=== PATIENT | female | born 1995 | race Caucasian/White ===

== ENCOUNTER 2018-08-14 09:25 | Outpatient (REF) | payer OTHER, SELFPAY ==
--- NOTE | 2018-08-14 08:30 | PAPFT_PTH ---
PATIENT: Renny Holliday LOC: [facility] U#:[id number] AGE/SX: 23/F ROOM: RE08/14/[address]: Ramona Aguayo NP : 1995 BED: DIS: 08/14/2018 SPEC #: [id number] RECD: 08/14/18 12:56 STATUS: KEVIN TIAN #: [id number] FABRIZIO: 08/14/18 08:[address]: Ramona Aguayo NP DEPT: [facility] Cytology RECD BY: Elysia Hernandez ENTERED: 08/14/18 12:56 SP TYPE: PAPFT OTHR DR: Lesa Mckinney MD Tissues: 1 - CX/ENDOCX FOR PAP SMEARS Procedures: PAP THIN PREP/UVM Screening Comments: [id number] (CHLAMYDIA/GC)
[2018-08-15 13:46] LABS: Chlamydia Result Negative; GC Result Negative; Specimen Description SEE COMMENTS
== END 2018-08-14 09:45 ==
LOC: LBN 09:25
PROVIDERS: PCP Pediatrics; Visit Provider Nurse Practitioner Women's Health
DX: Z12.4 Encounter for screening for malignant neoplasm of cervix (principal); Z11.51 Encounter for screening for human papillomavirus (HPV)
CPT/HCPCS: 87491; 87591; 88142

== ENCOUNTER 2020-02-16 21:04 | Outpatient (REF) | payer BC, SELFPAY ==
[2020-02-18 16:39] LABS: COVID-19 RT-PCR UVMMC Result Negative (Negative)
== END 2020-02-16 21:24 ==
LOC: NCHCN 21:04
PROVIDERS: Visit Provider Nurse Practitioner Family
DX: Z20.828 Contact with and (suspected) exposure to other viral communicable diseases (principal)
CPT/HCPCS: U0003

== ENCOUNTER 2021-11-29 15:53 | Outpatient (REF) | payer OTHER, SELFPAY ==
--- NOTE | 2021-11-29 15:00 | PAPFT_PTH ---
PATIENT: Renny Holliday LOC: [facility] U#:[id number] AGE/SX: 26/F ROOM: RE11/29/[address]: Ramona Aguayo NP : 1995 BED: DIS: 11/29/2021 SPEC #: [id number] RECD: 11/29/21 17:49 STATUS: KEVIN REQ #: [id number] FABRIZIO: 11/29/21 15:[address]: Ramona Aguayo NP DEPT: [facility] Cytology RECD BY: Elysia Hernandez ENTERED: 11/29/21 17:50 SP TYPE: PAPFT OTHR DR: Tiera Merida Tissues: 1 - CX/ENDOCX FOR PAP SMEARS Procedures: PAP THIN PREP/UVM Screening Comments: [id number]
== END 2021-11-29 15:54 | disposition home or self-care (01) ==
LOC: LBN 15:53
PROVIDERS: PCP Family Medicine; Visit Provider Nurse Practitioner Women's Health
DX: Z12.4 Encounter for screening for malignant neoplasm of cervix (principal)
CPT/HCPCS: 88142

== ENCOUNTER 2022-06-08 02:20 | Outpatient (CLI) | payer OTHER, SELFPAY ==
[2022-06-08 14:13] LABS: Panorama Kit Sent via Fed Ex
[2022-06-08 14:23] LABS: Abs Immature Grans 0.03 10^3/uL (0.0-0.06); Absolute Basophil Count 0.02 10^3/uL (0.0-0.2); Absolute Eosinophil Count 0.12 10^3/uL (0.0-0.7); Absolute Lymphocyte Count 1.43 10^3/uL (1.2-3.4); Absolute Monocyte Count 0.44 10^3/uL (0.1-0.8); Absolute Neutrophil Count 5.91 10^3/uL (1.2-6.7); Basophils % 0.3; Eosinophils % 1.5; HCT 35.8 % (36.0-46.0); HGB 12.7 g/dL (11.2-15.7); Immature Grans % 0.4; MCH 32.1 pg (27.0-33.0); MCHC 35.5 % (32.0-36.0); MCV 90 fL (80-95); MPV 9.9 fL (8.0-11.0); Monocytes % 5.5; Neutrophils % 74.3; Platelet Count 207 10^3/uL (130-400); RBC 3.96 10^6/uL (3.93-5.22); RDW 11.5 % (11.7-14.6); RDW-SD 38.2 fL; WBC 7.95 10^3/uL (4.4-10.8)
[2022-06-08 15:37] LABS: TSH (W/Ref FT4) 2.52 uIU/mL (0.36-3.74)
[2022-06-08 16:54] LABS: Lab Add On Test DONE
[2022-06-09 12:49] LABS: HIV-1/2 Ag & Ab Screen Negative (Negative)
[2022-06-11 10:26] LABS: Hepatitis B Surface Ag Negative (Negative)
[2022-06-11 10:56] LABS: Hepatitis C Ab w Rflx HCV PCR Negative (Negative)
[2022-06-11 11:13] LABS: Varicella IgG Antibody Positive (See Note)
[2022-06-11 11:22] LABS: Rubella IgG Ab (UVM) Positive (See Note)
[2022-06-11 14:05] LABS: Thyroperoxidase Antibody <28 U/mL (<=60)
[2022-06-11 23:56] LABS: Syphilis IgG w/Reflex Nonreactive (Nonreactive)
[2022-06-13 12:26] LABS: Specimen WB Whole Blood
[2022-06-19 14:57] LABS: Result Summary NEGATIVE; Specimen WB Whole Blood
== END 2022-06-08 02:21 | disposition home or self-care (01) ==
LOC: LBO 02:21
PROVIDERS: PCP Family Medicine; Visit Provider Advanced Practice Midwife
DX: Z34.01 Encounter for supervision of normal first pregnancy, first trimester (principal)
CPT/HCPCS: 36415; 81220; 81222; 81329; 86787; 86803; 86850; 86900; 86901; 87340; 87389; 84443; 85025; 86376; 86762; 86780

== ENCOUNTER 2022-06-08 12:57 | Outpatient (REF) | payer OTHER, SELFPAY ==
[2022-06-08 16:55] LABS: *AMPHETAMINES SCREEN URINE Negative (Negative); *BARBITURATES SCREEN URINE Negative (Negative); *BENZODIAZEPINES SCREEN URINE Negative (Negative); Cannabinoids THC Negative (Negative); Cocaine Screen,Urine Negative (Negative); METHADONE URINE SCREEN Negative (Negative); OPIATES URINE SCREEN Negative (Negative)
[2022-06-08 16:57] LABS: Tricyclic Antidepressants Negative (Negative)
[2022-06-14 21:49] LABS: Buprenorphine Negative ng/mL (Cutoff: 5.0); Norbuprenorphine Negative ng/mL (Cutoff: 2.5)
[2022-06-15 09:21] LABS: Chlamydia Result Negative (Negative); GC Result Negative (Negative)
== END 2022-06-08 12:58 | disposition home or self-care (01) ==
LOC: LBN 12:57
PROVIDERS: PCP Family Medicine; Visit Provider Advanced Practice Midwife
DX: Z34.90 Encounter for supervision of normal pregnancy, unspecified, unspecified trimester (principal)
CPT/HCPCS: 80307; 80348; 87491; 87591; 87086

== ENCOUNTER 2022-07-09 03:08 | Outpatient (CLI) | payer OTHER, SELFPAY ==
[2022-07-09 21:37] LABS: Thyroperoxidase Antibody <28 U/mL (<=60)
== END 2022-07-09 03:09 | disposition home or self-care (01) ==
LOC: LBO 03:08
PROVIDERS: Advanced Practice Midwife; PCP Family Medicine; Visit Provider Advanced Practice Midwife
DX: O99.282 Endocrine, nutritional and metabolic diseases complicating pregnancy, second trimester (principal); E04.9 Nontoxic goiter, unspecified; R79.89 Other specified abnormal findings of blood chemistry; Z3A.15 15 weeks gestation of pregnancy
CPT/HCPCS: 36415; 86376

== ENCOUNTER 2022-08-10 01:11 | Outpatient (CLI) | payer OTHER, SELFPAY ==
[2022-08-10 11:37] LABS: TSH (W/Ref FT4) 2.49 uIU/mL (0.36-3.74)
[2022-08-14 11:42] LABS: AFP 114.3 ng/mL; Cigarette smoking status non-Smoker; GA used in risk estimate Scan estimate; IVF Pregnancy No; Initial or repeat testing Initial testing; Insulin dependent diabetes No; Maternal Weight 122 lbs; Number of Fetuses 1; Physician Phone Number 802-748-7300; Prev Pregnancy w/NTD No; RECOMMENDED FOLLOW UP None.; Results Summary Normal risk
== END 2022-08-10 01:12 | disposition home or self-care (01) ==
LOC: LBO 01:11
PROVIDERS: Advanced Practice Midwife; PCP Family Medicine; Visit Provider Advanced Practice Midwife
DX: O99.282 Endocrine, nutritional and metabolic diseases complicating pregnancy, second trimester (principal); E04.9 Nontoxic goiter, unspecified; Z3A.19 19 weeks gestation of pregnancy
CPT/HCPCS: 36415; 82105; 84443

== ENCOUNTER 2022-10-04 03:56 | Outpatient (CLI) | payer OTHER, SELFPAY ==
[2022-10-04 09:46] LABS: HCT 36.1 % (36.0-46.0); HGB 12.6 g/dL (11.2-15.7); MCH 33.2 pg (27.0-33.0); MCHC 34.9 % (32.0-36.0); MCV 95 fL (80-95); MPV 9.9 fL (8.0-11.0); Platelet Count 182 10^3/uL (130-400); RDW 12.1 % (11.7-14.6); RDW-SD 42.2 fL; WBC 8.89 10^3/uL (4.4-10.8)
[2022-10-04 10:07] LABS: Glucose,1 Hr (Glucola) 112 mg/dL (80-140)
[2022-10-04 10:20] LABS: TSH (W/Ref FT4) 2.26 uIU/mL (0.36-3.74)
== END 2022-10-04 03:57 | disposition home or self-care (01) ==
LOC: LBO 03:56
PROVIDERS: Advanced Practice Midwife; PCP Family Medicine; Visit Provider Advanced Practice Midwife
DX: R79.89 Other specified abnormal findings of blood chemistry; Z83.49 Family history of other endocrine, nutritional and metabolic diseases; Z34.93 Encounter for supervision of normal pregnancy, unspecified, third trimester
CPT/HCPCS: 36415; 82950; 85027; 84443

== ENCOUNTER 2022-10-26 15:43 | Outpatient (REF) | payer OTHER, SELFPAY | END 2022-10-26 15:44 | disposition home or self-care (01) | LOC: LBN 15:43 | PROVIDERS: PCP Family Medicine; Visit Provider Advanced Practice Midwife | DX: Z34.93 Encounter for supervision of normal pregnancy, unspecified, third trimester (principal); N94.9 Unspecified condition associated with female genital organs and menstrual cycle; R82.79 Other abnormal findings on microbiological examination of urine | CPT/HCPCS: 87086; 87480; 87510; 87660 ==

== ENCOUNTER 2022-12-06 16:49 | Outpatient (REF) | payer OTHER, SELFPAY ==
[2022-12-06 18:33] LABS: *AMPHETAMINES SCREEN URINE Negative (Negative); *BARBITURATES SCREEN URINE Negative (Negative); *BENZODIAZEPINES SCREEN URINE Negative (Negative); Cannabinoids THC Negative (Negative); Cocaine Screen,Urine Negative (Negative); METHADONE URINE SCREEN Negative (Negative); OPIATES URINE SCREEN Negative (Negative)
[2022-12-06 18:35] LABS: Tricyclic Antidepressants Negative (Negative)
[2022-12-14 12:29] LABS: Buprenorphine Negative ng/mL (Cutoff: 5.0)
== END 2022-12-06 16:50 | disposition home or self-care (01) ==
LOC: LBN 16:49
PROVIDERS: PCP Family Medicine; Visit Provider Advanced Practice Midwife
DX: Z34.93 Encounter for supervision of normal pregnancy, unspecified, third trimester (principal)
CPT/HCPCS: 80307; 80348; 87081

== ENCOUNTER 2022-12-27 16:06 | Outpatient (CLI) | payer OTHER, SELFPAY ==
[2022-12-27 16:22] VITALS: BP 131/88; PULSE 82; TEMP 36.8
[2022-12-27 16:28] VITALS: BP 131/88; PULSE 82
[2022-12-27 16:42] VITALS: BP 126/85; PULSE 79
--- NOTE | 2022-12-27 16:51 | W.OBNST ---
Date of service: 12/27/22 Time of Service: 16:51 NST Evaluation Reason for NST Reasons for Nonstress Test: GESTATIONAL HYPERTENSION Gestational Age Gestational Age in Weeks and Days: 40 Weeks and 3Days Test and Monitor Explained Test/Monitor Explained: Test Explained, Monitor Explained and Patient Verbalized Understanding Vital Signs Blood Pressure: 131/88 Pulse: 82 Temperature: 98.2 F NST Information Date on Monitor: 12/27/22 Time on Monitor: 16:17 NST Interventions: None NST Evaluation Patient States Movement: Present FHR Baseline: 140 Variability: Moderate 6-25 bpm Accelerations: 15x15 Decelerations: None NST Results: Reactive Note Ultrasound Done: N/A. NST Note Note: Elevated BP at her visit today. Neg urine protein dip. BP recheck 126/85. Renny has stopped working and was encouraged to practice modified bedrest and RTO in 4 days for BP recheck. Sign sof preeclampsia reviewed with Renny and her partner. Diagnosis of gestational hypertension discussed and the option of IOL at this time or continued observation discussed. She was instructed to continue taking her BP at home and report BP 140/90. preeclampsia serum labs drawn. Await results. NST Reviewed and Verified by: Tea Ang
[2022-12-27 16:53] LABS: HCT 32.9 % (36.0-46.0); HGB 11.5 g/dL (11.2-15.7); MCH 32.3 pg (27.0-33.0); MCV 92 fL (80-95); MPV 10.8 fL (8.0-11.0); Platelet Count 142 10^3/uL (130-400); RBC 3.56 10^6/uL (3.93-5.22); RDW 12.3 % (11.7-14.6); RDW-SD 41.6 fL; WBC 9.62 10^3/uL (4.4-10.8)
[2022-12-27 16:54] VITALS: BP 131/88; PULSE 82; TEMP 36.8
[2022-12-27 17:09] LABS: ALT 21 U/L (14-59); AST 29 U/L (15-37); Albumin 2.7 g/dL (3.4-5.0); Alkaline Phosphatase 137 U/L (46-116); Anion Gap 6.7 mmol/L (3-11); BUN 14 mg/dL (7-18); Bilirubin, Total 0.2 mg/dL (0.2-1.0); CO2 24.3 mmol/L (21.0-32.0); CREATININE 0.8 mg/dL (0.55-1.02); Calcium 9.4 mg/dL (8.5-10.1); Chloride 105 mmol/L (98-107); Glucose 80 mg/dL (74-106); Potassium 3.7 mmol/L (3.5-5.1); Sodium 136 mmol/L (136-145); Total Protein 6.4 g/dL (6.4-8.2); Uric Acid 5.6 mg/dL (2.6-6.0)
== END 2022-12-27 17:10 ==
LOC: BCD 16:06 → OBS 16:20
PROVIDERS: PCP Family Medicine; Visit Provider Advanced Practice Midwife
DX: O13.3 Gestational [pregnancy-induced] hypertension without significant proteinuria, third trimester (principal); Z3A.40 40 weeks gestation of pregnancy
CPT/HCPCS: 80053; 85027; 59025; 84550

== ENCOUNTER 2023-01-01 17:28 | Inpatient (IN) | payer OTHER, SELFPAY ==
[2023-01-01] VITALS (12 sets, daily range): BP systolic 136–160; BP diastolic 92–105; PULSE 68–97; RESP 18; TEMP 36.8
[2023-01-01 16:41] LABS: HCT 35.9 % (36.0-46.0); HGB 12.3 g/dL (11.2-15.7); MCH 32.1 pg (27.0-33.0); MCHC 34.3 % (32.0-36.0); MCV 94 fL (80-95); MPV 10.9 fL (8.0-11.0); Platelet Count 146 10^3/uL (130-400); RBC 3.83 10^6/uL (3.93-5.22); RDW 12.4 % (11.7-14.6); RDW-SD 42.5 fL; WBC 9.09 10^3/uL (4.4-10.8)
[2023-01-01 17:11] LABS: ALT 29 U/L (14-59); AST 35 U/L (15-37); Albumin 2.8 g/dL (3.4-5.0); Alkaline Phosphatase 143 U/L (46-116); Anion Gap 9.4 mmol/L (3-11); BUN 12 mg/dL (7-18); Bilirubin, Total 0.3 mg/dL (0.2-1.0); CO2 25.6 mmol/L (21.0-32.0); CREATININE 0.8 mg/dL (0.55-1.02); Calcium 9.3 mg/dL (8.5-10.1); Chloride 102 mmol/L (98-107); Glucose 76 mg/dL (74-106); Potassium 4.1 mmol/L (3.5-5.1); Sodium 137 mmol/L (136-145); Total Protein 6.8 g/dL (6.4-8.2); Uric Acid 5.8 mg/dL (2.6-6.0)
--- NOTE | 2023-01-01 17:34 | W.OBNST ---
Date of service: 01/01/23 Time of Service: 17:34 NST Evaluation Reason for NST Reasons for Nonstress Test: GESTATIONAL HYPERTENSION Gestational Age Gestational Age in Weeks and Days: 40 Weeks and 1Days Test and Monitor Explained Test/Monitor Explained: Test Explained, Monitor Explained and Patient Verbalized Understanding Vital Signs Pulse: 75 Temperature: 98.2 F Urine Results Urine Protein: Negative Urine Ketones: Negative Urine Glucose: Negative Urine Blood: Negative NST Information Date on Monitor: 01/01/23 Time on Monitor: 16:00 Date off Monitor: 01/01/23 Time off Monitor: 16:41 Total Time on Monitor: 41 NST Interventions: None Contraction Frequency: 5-6 minutes apart NST Evaluation Patient States Movement: Present FHR Baseline: 130 Variability: Moderate 6-25 bpm Accelerations: 15x15 Decelerations: None NST Results: Reactive Note Ultrasound Done: DALILA Coding for DALILA w/NST: Completed Exam. NST Note Note: NST reactive. DALILA performed by Dr Macias and DALILA 14. preeclampsia labs were drawn and WNL. BP continued to rise to 160/105. SVE and cervix 2/post/80/0 station. I discussed admission for continued BP monitoring and consider induction of labor. Renny prefers cervical ripening without medications and stripping of membranes was performed which she tolerated well. Admitted to center NST Reviewed and Verified by: Tea Ang
[2023-01-01 17:38] LABS: COMMENT (LAB VIEW ONLY) 32.93 mg/dL; PROTEIN < 6.0 mg/dL
--- NOTE | 2023-01-01 17:38 | W.PM.OBHPL1 ---
Date of service: 01/01/23 Time of Service: 17:38 Assessment and Plan Assessment and plan (1) Gestational hypertension: Status: Acute Assessment and plan: Admit to Center for continued observation. Comfort measures. Hourly BP and every 4 hour NST. Covid- 19 test. Consider cervical ripening if indicated by Renny's condition. Plan reviewed with Dr. Macias who agrees. Will plan to repeat preeclampsia panel and draw type and screen in the morning. OB-HPI Labor/Delivery History of Present Illness Reason for Visit: COVID.Other Chief Complaint: Signs/Symptoms Gestational HTN , Associated Signs and Symptoms of GestationalHTN: hypertension. MIRTA Calculator Estimated Delivery Date Method Current WG Current Estimate 12/31/22 Ultrasound #1 40w 1d Other Estimates 12/20/22 LMP (Certain) 41w 5d Comments: Renny came to the center for NST after elevated BP at her visit. Preeclampsia labs performed 6 days ago and were WNL with BP 130-140/80-90. BP range today is 141-160/92-105. DALILA performed by Dr Macias during NST which was 14. neg edema. History of Present Expected Delivery Route/Plan - CNM FOB/ - Ramiro Holliday (first baby) BG GBS negative Prefers no epidural Specific Issues/Plan 1. Enlarged thyroid, TSH 2.52, TPO <28 1a. repeat TSH second trimester- 2.49, third trimester - 2.26 2. Panorama-neg, CF & SMA negative, AFP nl risk 3. Fam hx Bicuspid aortic valve - pt's father. Neurofibromatosis - Ramiro's Pat GM, paternal uncles & ?nephew. 3a. Offered Level 2 US at [facility] [place] and referral sent, pt declines 4. Right flank pain at 30 weeks- urine culture neg, symptoms resolved with rest and fluids PFSH All Active Problems (Updated 12/27/22 @ 16:34 by Tea Ang CNM) Gestational hypertension (Acute) Elevated TSH (Acute) Family history of thyroid disease (Acute) Enlarged thyroid (Acute) (Acute) Family history of congenital heart defect (Acute) Renny's father - bicuspid aortic valve Positive test (Acute) Medical History (Updated 12/27/22 @ 16:34 by Tea Ang CNM) Closed fracture of humerus L Family History (Updated 07/09/22 @ 13:45 by Tea Ang CNM) Father Essential hypertension Grandmother Personal history of malignant neoplasm Heart disease Maternal Grandmother Breast cancer age 60 Paternal Grandfather Heart disease Maternal Grandfather Parathyroid abnormality parathyroid nodules removed Mother Parathyroid abnormality Social History Smoking/Tobacco Use Status: Never Smoking risk assessment performed?: Yes Female Reproductive History Menstrual Age of Menarche: 17 control method: none History History 1 Para 0 Hx # Term Pregnancies 0 Multiple births 0 Hx # Pregnancies 0 Ectopic pregnancies 0 AB induced 0 Hx Number of Living Children 0 AB spontaneous 0 Meds Allergies and Home Medications Allergies Allergy/AdvReac Type Severity Reaction Status Date / Time No Known Allergies Allergy Verified 01/01/23 15:48 Home Medications Medication Instructions Recorded Confirmed Type prenat.vits,teena,ehe-hxuz-glfzq 1 tab PO DAILY 11/29/21 01/01/23 History Exam Physical Exam Vital signs: Pulse BP 75 160/105 H 01/01/23 17:05 01/01/23 17:05 Constitutional Constitutional: no acute distress Detailed Labor and Delivery Exam Dilation: 2 Effacement (%): 80 station: 0 Cervix position: posterior Consistency: soft Johnson Score: Cervical Points Exam 0 1 2 3 Dilation Closed 1-2cm 3-4 cm 5-6cm Effacement 0-30% 40-50% 60-70% 80% Consistency Firm Medium Soft Station -3 -2 -1,0 +1,+2 Position Posterior Mid Anterior JOHNSON Score(Cervical Ripeness Score): 8 Amniotic Membrane Status: Intact Monitor Mode: External Contraction Frequency(min): occasional Contraction Duration(sec): irreg Contraction Intensity: Mild Fetus A Heart Rate Baseline: 130 Monitor Accelerations: 15 X 15 Monitor Decelerations: None Variability: Moderate (6-25 BPM) Presentation: Vertex Categories: Category I Neck Exam Neck Exam: Normal Respiratory Exam Respiratory Exam: Normal Cardiovascular Exam Cardiovascular Exam: Normal Abdominal Exam Abdominal Exam: Normal Exam Exam: Normal Extremities Exam Extremities Exam: Normal Skin Exam Skin Exam: Normal Psychiatric Exam Psychiatric Exam: Normal Results Abnormal Lab Findings: Abnormal Labs 01/01/23 16:31 RBC 3.83 L Hct 35.9 L Alkaline Phosphatase 143 H Albumin 2.8 L Risk Assessment Risk for Shoulder Dystocia Historical/Initial OB: NEGATIVE FOR: Pelvic Abnormality, Pre- BMI>30, Previous Shoulder Dystocia or Previous Macrosomia Delivery Plan @ 40 wks: Risk for Pre-Eclampsia Yes, if one or more: NEGATIVE FOR: Hx Pre-E/Gest HTN, Chronic HTN, Multiple Gestation, Pre-gestational DM, Renal Disease, Systemic Lupus or APA Syndrome Yes, if 2 or more: POSITIVE FOR: Nulliparity; NEGATIVE FOR: Age>= 35 yrs, >10yr btwn pregnancies, BMI>30, ethinicty, Mother/Sister w/ Pre-E or Previous IUGR Risk for Post- Hemorrhage Initial: NEGATIVE FOR: Multiple Gestation, Previous PPH, Known Clotting Deficiency, Grand Multiparity or Anticoagulation 40 Weeks: POSITIVE FOR: Gestation HTN or Pre-E At Risk?: Yes Risks Reviewed Risks Reviewed Upon Admission: Yes
[2023-01-01 18:00] LABS: Source Nasal/Nares
[2023-01-01 18:43] LABS: COVID-19 PCR Negative (Negative)
[2023-01-02] VITALS (19 sets, daily range): BP systolic 114–148; BP diastolic 76–92; PULSE 70–140; RESP 16–18; TEMP 36.4–36.8; O2SAT 97
[2023-01-02 07:26] LABS: HGB 13.3 g/dL (11.2-15.7); MCH 32.8 pg (27.0-33.0); MCV 94 fL (80-95); MPV 10.9 fL (8.0-11.0); Platelet Count 144 10^3/uL (130-400); RBC 4.05 10^6/uL (3.93-5.22); RDW 12.3 % (11.7-14.6)
[2023-01-02 07:45] LABS: ALT 61 U/L (14-59); AST 73 U/L (15-37); Alkaline Phosphatase 147 U/L (46-116); Anion Gap 10.7 mmol/L (3-11); BUN 12 mg/dL (7-18); Bilirubin, Total 0.5 mg/dL (0.2-1.0); CO2 24.3 mmol/L (21.0-32.0); CREATININE 0.9 mg/dL (0.55-1.02); Chloride 101 mmol/L (98-107); Estimated GFR 90.98 (mL/min/1.73m2); Glucose 86 mg/dL (74-106); Potassium 3.7 mmol/L (3.5-5.1); Sodium 136 mmol/L (136-145); Uric Acid 5.7 mg/dL (2.6-6.0)
--- NOTE | 2023-01-02 07:53 | PGE_ITS ---
Date of service: 01/02/23 Time of Service: 06:15 Pelvic Exam Comments: exam deferred Contractions Monitor Mode: External Contraction Frequency(min): every 2-4 Contraction Duration(sec): 50-60 Intensity: Mild/Moderate Fetus A Monitor: External (US) Heart Rate Baseline: 130 Presentation: Vertex Variability: Moderate (6-25 BPM) Categories: Category I Accelerations: 15 X 15 Decelerations: None Objective Abnormal lab results 01/01/23 01/02/23 Range/Units 16:31 06:55 WBC 11.30 H (4.4-10.8) 10^3/uL RBC 3.83 L (3.93-5.22) 10^6/uL Hct 35.9 L (36.0-46.0) % AST 73 H (15-37) U/L ALT 61 H (14-59) U/L Alkaline Phosphatase 143 H 147 H (46-116) U/L Albumin 2.8 L 3.0 L (3.4-5.0) g/dL Temp Pulse Resp BP 97.9 F 90 18 123/77 01/02/23 07:28 01/02/23 07:28 01/02/23 07:28 01/02/23 07:28 Laboratory Results WBC 11.30 10^3/uL (4.4-10.8) H 01/02/23 06:55 RBC 4.05 10^6/uL (3.93-5.22) 01/02/23 06:55 Hgb 13.3 g/dL (11.2-15.7) 01/02/23 06:55 Hct 38.0 % (36.0-46.0) 01/02/23 06:55 MCV 94 fL (80-95) 01/02/23 06:55 MCH 32.8 pg (27.0-33.0) 01/02/23 06:55 MCHC 35.0 % (32.0-36.0) 01/02/23 06:55 RDW 12.3 % (11.7-14.6) 01/02/23 06:55 Plt Count 144 10^3/uL (130-400) 01/02/23 06:55 MPV 10.9 fL (8.0-11.0) 01/02/23 06:55 Sodium 136 mmol/L (136-145) 01/02/23 06:55 Sodium Cancelled 01/02/23 06:55 Potassium 3.7 mmol/L (3.5-5.1) 01/02/23 06:55 Potassium Cancelled 01/02/23 06:55 Chloride 101 mmol/L (98-107) 01/02/23 06:55 Chloride Cancelled 01/02/23 06:55 Carbon Dioxide 24.3 mmol/L (21.0-32.0) 01/02/23 06:55 Carbon Dioxide Cancelled 01/02/23 06:55 Anion Gap 10.7 mmol/L (3-11) 01/02/23 06:55 Anion Gap Cancelled 01/02/23 06:55 BUN 12 mg/dL (7-18) 01/02/23 06:55 BUN Cancelled 01/02/23 06:55 Creatinine 0.9 mg/dL (0.55-1.02) 01/02/23 06:55 Creatinine Cancelled 01/02/23 06:55 Est GFR (CKD-EPI 2020) 90.98 (mL/min/1.73m2) 01/02/23 06:55 Est GFR (CKD-EPI 2020) Cancelled 01/02/23 06:55 Glucose 86 mg/dL (74-106) 01/02/23 06:55 Glucose Cancelled 01/02/23 06:55 Uric Acid 5.7 mg/dL (2.6-6.0) 01/02/23 06:55 Calcium 9.0 mg/dL (8.5-10.1) 01/02/23 06:55 Calcium Cancelled 01/02/23 06:55 Total Bilirubin 0.5 mg/dL (0.2-1.0) 01/02/23 06:55 Total Bilirubin Cancelled 01/02/23 06:55 AST 73 U/L (15-37) H 01/02/23 06:55 AST Cancelled 01/02/23 06:55 ALT 61 U/L (14-59) H 01/02/23 06:55 ALT Cancelled 01/02/23 06:55 Alkaline Phosphatase 147 U/L (46-116) H 01/02/23 06:55 Alkaline Phosphatase Cancelled 01/02/23 06:55 Total Protein 7.0 g/dL (6.4-8.2) 01/02/23 06:55 Total Protein Cancelled 01/02/23 06:55 Albumin 3.0 g/dL (3.4-5.0) L 01/02/23 06:55 Albumin Cancelled 01/02/23 06:55 Ur Random Creatinine 32.93 mg/dL 01/01/23 16:43 U Random Total Protein < 6.0 mg/dL 01/01/23 16:43 U [place] Prot/Creat Ratio 01/01/23 16:43 COVID-19 Source Nasal/Nares 01/01/23 17:40 SARS-CoV-2 (PCR) Negative (Negative) 01/01/23 17:40 Subjective Interval history since last seen: Renny rested and slept until 0300. She awoke with regular contractions and began using the ball for comfort. Pain relief options reviewed by RN and Renny is coping well with contractions, BP range is 123-151/77-93. Results Hemoglobin/Hematocrit: Hgb 13.3 g/dL (11.2-15.7) 01/02/23 06:55 Hct 38.0 % (36.0-46.0) 01/02/23 06:55 Abnormal Lab Findings: Abnormal Labs 01/01/23 01/02/23 16:31 06:55 WBC 11.30 H RBC 3.83 L Hct 35.9 L AST 73 H ALT 61 H Alkaline Phosphatase 143 H 147 H Albumin 2.8 L 3.0 L
--- NOTE | 2023-01-02 10:10 | PGE_ITS ---
Date of service: 01/02/23 Time of Service: 09:50 Pelvic Exam Dilation: 8 Effacement (%): 100 station: 0 Contractions Monitor Mode: Palpation Contraction Frequency(min): q4-5 Contraction Duration(sec): 60-70 Intensity: Moderate/Strong Fetus A Monitor: Doppler Heart Rate Baseline: 140 Presentation: Cephalic FHR Rhythm: Regular Characteristics: Normal Accelerations: Present Amniotic Membrane Status: Ruptured Rupture Method: Artifical Amniotic Fluid: Clear Amount: small Date of Membrane Rupture: 01/02/23 Time of Membrane Rupture: 09:46 Assessment and Plan Assessment and plan (1) Uterine contractions: Status: Acute Assessment and plan: A: Hand off from Gentry Ang CNM 27 yo G1 @ 40+2 wks spontaneous onset of active labor category 1 tracing GBS negative, low risk for SD, increased risk for PPH P: Anticipate Active management of third stage Dr. Macias consulting, is aware of pt status (2) Gestational hypertension: Status: Acute Assessment and plan: gHTN diagnosed yesterday Labs repeated this morning and remain WNL BP has stabilized to 120-130 over 70's Qualifiers: Trimester: third trimester Qualified Code(s): O13.3 - Gestational [-induced] hypertension without significant proteinuria, third trimester Objective Abnormal lab results 01/01/23 01/02/23 Range/Units 16:31 06:55 WBC 11.30 H (4.4-10.8) 10^3/uL RBC 3.83 L (3.93-5.22) 10^6/uL Hct 35.9 L (36.0-46.0) % AST 73 H (15-37) U/L ALT 61 H (14-59) U/L Alkaline Phosphatase 143 H 147 H (46-116) U/L Albumin 2.8 L 3.0 L (3.4-5.0) g/dL Temp Pulse Resp BP 97.5 F L 83 18 124/77 01/02/23 10:06 01/02/23 09:03 01/02/23 09:03 01/02/23 09:03 Laboratory Results WBC 11.30 10^3/uL (4.4-10.8) H 01/02/23 06:55 RBC 4.05 10^6/uL (3.93-5.22) 01/02/23 06:55 Hgb 13.3 g/dL (11.2-15.7) 01/02/23 06:55 Hct 38.0 % (36.0-46.0) 01/02/23 06:55 MCV 94 fL (80-95) 01/02/23 06:55 MCH 32.8 pg (27.0-33.0) 01/02/23 06:55 MCHC 35.0 % (32.0-36.0) 01/02/23 06:55 RDW 12.3 % (11.7-14.6) 01/02/23 06:55 Plt Count 144 10^3/uL (130-400) 01/02/23 06:55 MPV 10.9 fL (8.0-11.0) 01/02/23 06:55 Sodium 136 mmol/L (136-145) 01/02/23 06:55 Sodium Cancelled 01/02/23 06:55 Potassium 3.7 mmol/L (3.5-5.1) 01/02/23 06:55 Potassium Cancelled 01/02/23 06:55 Chloride 101 mmol/L (98-107) 01/02/23 06:55 Chloride Cancelled 01/02/23 06:55 Carbon Dioxide 24.3 mmol/L (21.0-32.0) 01/02/23 06:55 Carbon Dioxide Cancelled 01/02/23 06:55 Anion Gap 10.7 mmol/L (3-11) 01/02/23 06:55 Anion Gap Cancelled 01/02/23 06:55 BUN 12 mg/dL (7-18) 01/02/23 06:55 BUN Cancelled 01/02/23 06:55 Creatinine 0.9 mg/dL (0.55-1.02) 01/02/23 06:55 Creatinine Cancelled 01/02/23 06:55 Est GFR (CKD-EPI 2020) 90.98 (mL/min/1.73m2) 01/02/23 06:55 Est GFR (CKD-EPI 2020) Cancelled 01/02/23 06:55 Glucose 86 mg/dL (74-106) 01/02/23 06:55 Glucose Cancelled 01/02/23 06:55 Uric Acid 5.7 mg/dL (2.6-6.0) 01/02/23 06:55 Calcium 9.0 mg/dL (8.5-10.1) 01/02/23 06:55 Calcium Cancelled 01/02/23 06:55 Total Bilirubin 0.5 mg/dL (0.2-1.0) 01/02/23 06:55 Total Bilirubin Cancelled 01/02/23 06:55 AST 73 U/L (15-37) H 01/02/23 06:55 AST Cancelled 01/02/23 06:55 ALT 61 U/L (14-59) H 01/02/23 06:55 ALT Cancelled 01/02/23 06:55 Alkaline Phosphatase 147 U/L (46-116) H 01/02/23 06:55 Alkaline Phosphatase Cancelled 01/02/23 06:55 Total Protein 7.0 g/dL (6.4-8.2) 01/02/23 06:55 Total Protein Cancelled 01/02/23 06:55 Albumin 3.0 g/dL (3.4-5.0) L 01/02/23 06:55 Albumin Cancelled 01/02/23 06:55 Ur Random Creatinine 32.93 mg/dL 01/01/23 16:43 U Random Total Protein < 6.0 mg/dL 01/01/23 16:43 U [place] Prot/Creat Ratio 01/01/23 16:43 COVID-19 Source Nasal/Nares 01/01/23 17:40 SARS-CoV-2 (PCR) Negative (Negative) 01/01/23 17:40 Patient ABO/Rh O Positive 01/02/23 06:55 Antibody Screen NEGATIVE 01/02/23 06:55 Vital Signs Reviewed: Yes Objective Narrative Objective Narrative: BP stable and WNL this morning Pt coping extremely well with contractions Using floor mat, CUB, and nitrous to good effect
--- NOTE | 2023-01-02 10:18 | W.PM.OBNL1 ---
Date of service: 01/02/23 Time of Service: 10: Assessment and Plan Assessment and plan (1) Elevated liver enzymes: Status: Acute Assessment and plan: Addendum to previous labor progress note: HTN labs drawn this morning reveal nml plts and CBC, CMP stable except for increased AST/ALT = 73/61, creatinine 0.9 Urine prot/creat pending Will review with Objective Abnormal lab results 01/01/23 01/02/23 Range/Units 16:31 06:55 WBC 11.30 H (4.4-10.8) 10^3/uL RBC 3.83 L (3.93-5.22) 10^6/uL Hct 35.9 L (36.0-46.0) % AST 73 H (15-37) U/L ALT 61 H (14-59) U/L Alkaline Phosphatase 143 H 147 H (46-116) U/L Albumin 2.8 L 3.0 L (3.4-5.0) g/dL Temp Pulse Resp BP 97.5 F L 83 18 124/77 01/02/23 10:06 01/02/23 09:03 01/02/23 09:03 01/02/23 09:03 Laboratory Results WBC 11.30 10^3/uL (4.4-10.8) H 01/02/23 06:55 RBC 4.05 10^6/uL (3.93-5.22) 01/02/23 06:55 Hgb 13.3 g/dL (11.2-15.7) 01/02/23 06:55 Hct 38.0 % (36.0-46.0) 01/02/23 06:55 MCV 94 fL (80-95) 01/02/23 06:55 MCH 32.8 pg (27.0-33.0) 01/02/23 06:55 MCHC 35.0 % (32.0-36.0) 01/02/23 06:55 RDW 12.3 % (11.7-14.6) 01/02/23 06:55 Plt Count 144 10^3/uL (130-400) 01/02/23 06:55 MPV 10.9 fL (8.0-11.0) 01/02/23 06:55 Sodium 136 mmol/L (136-145) 01/02/23 06:55 Sodium Cancelled 01/02/23 06:55 Potassium 3.7 mmol/L (3.5-5.1) 01/02/23 06:55 Potassium Cancelled 01/02/23 06:55 Chloride 101 mmol/L (98-107) 01/02/23 06:55 Chloride Cancelled 01/02/23 06:55 Carbon Dioxide 24.3 mmol/L (21.0-32.0) 01/02/23 06:55 Carbon Dioxide Cancelled 01/02/23 06:55 Anion Gap 10.7 mmol/L (3-11) 01/02/23 06:55 Anion Gap Cancelled 01/02/23 06:55 BUN 12 mg/dL (7-18) 01/02/23 06:55 BUN Cancelled 01/02/23 06:55 Creatinine 0.9 mg/dL (0.55-1.02) 01/02/23 06:55 Creatinine Cancelled 01/02/23 06:55 Est GFR (CKD-EPI 2020) 90.98 (mL/min/1.73m2) 01/02/23 06:55 Est GFR (CKD-EPI 2020) Cancelled 01/02/23 06:55 Glucose 86 mg/dL (74-106) 01/02/23 06:55 Glucose Cancelled 01/02/23 06:55 Uric Acid 5.7 mg/dL (2.6-6.0) 01/02/23 06:55 Calcium 9.0 mg/dL (8.5-10.1) 01/02/23 06:55 Calcium Cancelled 01/02/23 06:55 Total Bilirubin 0.5 mg/dL (0.2-1.0) 01/02/23 06:55 Total Bilirubin Cancelled 01/02/23 06:55 AST 73 U/L (15-37) H 01/02/23 06:55 AST Cancelled 01/02/23 06:55 ALT 61 U/L (14-59) H 01/02/23 06:55 ALT Cancelled 01/02/23 06:55 Alkaline Phosphatase 147 U/L (46-116) H 01/02/23 06:55 Alkaline Phosphatase Cancelled 01/02/23 06:55 Total Protein 7.0 g/dL (6.4-8.2) 01/02/23 06:55 Total Protein Cancelled 01/02/23 06:55 Albumin 3.0 g/dL (3.4-5.0) L 01/02/23 06:55 Albumin Cancelled 01/02/23 06:55 Ur Random Creatinine 32.93 mg/dL 01/01/23 16:43 U Random Total Protein < 6.0 mg/dL 01/01/23 16:[address] [place] Prot/Creat Ratio 01/01/23 16:43 COVID-19 Source Nasal/Nares 01/01/23 17:40 SARS-CoV-2 (PCR) Negative (Negative) 01/01/23 17:40 Patient ABO/Rh O Positive 01/02/23 06:55 Antibody Screen NEGATIVE 01/02/23 06:55
[2023-01-02] MEDS: Oxytocin/Normal Saline 30 UNIT/500 ML BAG 95 UNITS IV (12:26)
--- NOTE | 2023-01-02 13:01 | OBVDS_ITS ---
Date of service: 01/02/23 Time of Service: 13:01 OB Labor/ Delivery Information Baby A Delivery Delivery Method: Spontaneaous Presentation: Cephalic Cephalic Position: Vertex Vertex Position: Left Occipital Anterior Cord Description-Baby A: 3 Vessels and Other (left nuchal hand) Amniotic Fluid: Clear Estimated Blood Loss: 200 QBL Delivery Outcome: Liveborn Infant Transferred: Remains with Mother Note: Pt progressed to full dilation after AROM and began spontaneous urges to push with vtx @ +2/+3 station, 2nd stage huddle completed and pt encouraged to push with contractions. Pt tried various positions and FHT's remained reassuring per doptone @ 120-130, however contractions slowed to q5-6 minutes and were of short duration. head visible on the perineum but progress was slow, therefore after the second 2nd stage huddle was held, pitocin augmentation was started at noon with increasing contraction frequency 10 minutes later. was prolonged, 1% lidocaine infiltration of the perineum was done in hopes less painful sensation would allow pt to increase efforts. Perineal tissue and anterior structures were stretching tightly and blanching somewhat so a small MLE was cut and of a vigorous female infant was accomplished 2 contractions later. Shoulders delivered with ease and left nuchal hand noted, to mother's arms immediately. pitocin bolus begun, cord ceased pulsations at 4 minutes and was clamped then cut by FOB, cord blood collected, Leal placenta delivered intact with 3VC. MLE remained first degree and was repaired with 3.0 Vicryl under local anesthesia, no extension or lacerations were observed. Strong family bonding noted, apgars 9/9, weight 2934 gms. TN Note: HTN labs drawn this morning @ 0800 revealed elevated AST/ALT and rising serum creatinine. Discussed these results with Dr. Rivera, plan made to repeat labs shortly after delivery and if elevations are persisting will begin Magnesium for neuro-prophylaxis in pre-eclampsia. BP's throughout labor were stable, immediately are 130's over 80's. Repeat labs this afternoon show improvement with decrease in creatinine to 0.5, ALT and AST decreased 47/38, LDH is nml @ 179. Will monitor urine output through the evening/night, hold MagSO4 at this time, repeat labs in the morning. BP's remain WNL and stable @ 110-120's over 70's. Providers Nurse Realty Specialist: Nikole Shaikh Nurse: Mercedes Godinez Nurse: Nel Hoff Labor/Delivery Information Number of Babies in Womb: 1 Steroids Given: None Reason Steroids Not Administered: N/A Group Beta Strep: Negative Antibiotics Administered: No Number of Doses of Antibiotics: 0 Rubella Status: Immune Blood Type: O+ Varicella Immunity: Immune Medication in Delivery: Pitocin augmentation in 2nd stage and bolus Shoulder Dystocia: No Stages of Labor Onset of Labor Date: 01/02/23 Onset of Labor Time: 04:00 Complete Dilatation Date: 01/02/23 Complete Dilatation Time: 10:34 Labor - Stage 1 Duration: 6 hours and 34 minutes ROM Baby A: 01/02/23 ROM Baby A: 09:46 ROM Total Time- Baby A: [id number] Delivery Date-Baby A: 01/02/23 Infant Delivery Time-Baby A: 12:24 Labor Stage 2 Duration: 1 hours and 50 minutes Placenta Delivery Date-Baby A: 01/02/23 Placenta Delivery Time-Baby A: 12:31 Labor-Stage 3 Duration: 7 minutes Total Length of Labor-Baby A: 8 hours and 24 minutes Placenta Cultured: No Placenta Status: Delivered Baby A Infant Gender: Female Gestational Status: Term (39-41.6 wks) Gestational Age in Weeks/Days: 40 Weeks and 2 Days weight: 6 lb 7.494 oz Weight Comment: 2934 gms Score-1 Minute Interval(Baby A) Heart Rate-1 minute: 100 BPM or Greater Respiratory Effort- 1 minute: Spontaneous/Strong Cry Muscle Tone-1 minute: Active Movement Reflex Response-1 minute: Prompt Response Color-1 minute: Bluish Hands or Feet Total Score-1 minute: 9 Score-5 Minute Interval(Baby A) Heart Rate- 5 minute: 100 BPM or Greater Respiratory Effort-5 minute: Spontaneous/Strong Cry Muscle Tone-5 minute: Active Movement Reflex Response-5 minute: Prompt Response Color-5 minute: Bluish Hands or Feet Total Score- 5 minute: 9 Procedure Procedures: Cord Blood Collection Interventions Augmentation , Pitocin rate (mU/min): 2/ Episiotomy Indication: Reduction of trauma, Episiotomy Description: Midline Midline Degree: 1st Degree. Sponge Count Correct: Yes, Sharp Count Correct: Yes.
[2023-01-02] MEDS: Dibucaine 1% 28 GM TUBE TP (13:29)
[2023-01-02] MEDS: Hamamelis Leaf/Glycerin 100 EACH BOX PR (13:29)
[2023-01-02] MEDS: Acetaminophen 325 MG TAB 650 MG PO ×2 (13:29→19:41)
[2023-01-02] MEDS: Ibuprofen 600 MG TAB PO ×2 (13:29→19:42)
[2023-01-02 13:44] LABS: PROTEIN 59.5 mg/dL; Prot/Crea Ur Ratio 0.19
[2023-01-02 13:53] LABS: HCT 25.3 % (36.0-46.0); HGB 8.9 g/dL (11.2-15.7); MCH 32.7 pg (27.0-33.0); MCHC 35.2 % (32.0-36.0); MCV 93 fL (80-95); MPV 10.5 fL (8.0-11.0); Platelet Count 115 10^3/uL (130-400); RBC 2.72 10^6/uL (3.93-5.22); RDW 12.2 % (11.7-14.6); RDW-SD 41.9 fL; WBC 11.78 10^3/uL (4.4-10.8)
[2023-01-02 14:09] LABS: ALT 38 U/L (14-59); AST 47 U/L (15-37); Albumin 1.9 g/dL (3.4-5.0); Alkaline Phosphatase 100 U/L (46-116); Anion Gap 12.8 mmol/L (3-11); BUN 10 mg/dL (7-18); Bilirubin, Total 0.4 mg/dL (0.2-1.0); CO2 17.2 mmol/L (21.0-32.0); CREATININE 0.5 mg/dL (0.55-1.02); Calcium 7.4 mg/dL (8.5-10.1); Chloride 104 mmol/L (98-107); Glucose 85 mg/dL (74-106); LDH 179 U/L (81-234); Potassium 3.6 mmol/L (3.5-5.1); Sodium 134 mmol/L (136-145); Total Protein 4.6 g/dL (6.4-8.2)
[2023-01-02] MEDS: Docusate Sodium 100 MG CAP PO (19:44)
[2023-01-03] VITALS: BP 122/86; PULSE 78; RESP 16; TEMP 36.8; O2SAT 99
[2023-01-03] MEDS: Ibuprofen 600 MG TAB PO ×3 (05:10→19:39)
[2023-01-03] MEDS: Acetaminophen 325 MG TAB 650 MG PO ×3 (05:10→19:41)
[2023-01-03 05:46] VITALS: BP 121/84; PULSE 84; RESP 16; TEMP 36.6; O2SAT 100
[2023-01-03 06:49] LABS: HCT 33.5 % (36.0-46.0); HGB 11.9 g/dL (11.2-15.7); MCH 32.7 pg (27.0-33.0); MCHC 35.5 % (32.0-36.0); MCV 92 fL (80-95); MPV 10.5 fL (8.0-11.0); Platelet Count 150 10^3/uL (130-400); RBC 3.64 10^6/uL (3.93-5.22); RDW 12.3 % (11.7-14.6); RDW-SD 41.3 fL; WBC 12.83 10^3/uL (4.4-10.8)
[2023-01-03 07:09] LABS: ALT 47 U/L (14-59); AST 72 U/L (15-37); Albumin 2.6 g/dL (3.4-5.0); Alkaline Phosphatase 125 U/L (46-116); Anion Gap 8.4 mmol/L (3-11); BUN 14 mg/dL (7-18); Bilirubin, Total 0.3 mg/dL (0.2-1.0); CO2 25.6 mmol/L (21.0-32.0); CREATININE 0.9 mg/dL (0.55-1.02); Calcium 8.9 mg/dL (8.5-10.1); Chloride 104 mmol/L (98-107); Estimated GFR 90.98 (mL/min/1.73m2); Glucose 76 mg/dL (74-106); Sodium 138 mmol/L (136-145); Total Protein 6.2 g/dL (6.4-8.2)
[2023-01-03 08:30] VITALS: BP 129/87; PULSE 68; RESP 12; TEMP 36.9
--- NOTE | 2023-01-03 09:24 | OBPPV_ITS ---
Date of service: 01/03/23 Time of Service: 09:24 Assessment and Plan Assessment and plan (1) Elevated liver enzymes: Status: Acute (2) Gestational hypertension: Status: Acute Assessment and plan: Repeat labs this morning are stable BP 120's over 80's Pt is asymptomatic, normoreflexic Reviewed with Dr. Rivera Discharge tomorrow to allow for continued BP checks and observation Qualifiers: Trimester: third trimester Qualified Code(s): O13.3 - Gestational [-induced] hypertension without significant proteinuria, third trimester (3) Term delivered: Status: Acute Assessment and plan: A: PPD#1 going well Satisfied with experience P: Plan for discharge tomorrow BP remains WNL Plan BP check 48 hr after discharge Pt desires natural family planning Continue routine PP care Subjective Subjective Patient comments: No complaints, Pain well controlled, Tolerating diet and Flatus present Patient's Mood: happy [place] baby status: Doing well, Nursing well, Rooming in and Strong Bonding Observed [place] feeding status: Exclusively breast feeding Exam Physical Exam Vital signs: Temp Pulse Resp BP Pulse Ox 97.9 F 84 16 121/84 100 01/03/23 05:46 01/03/23 05:46 01/03/23 05:46 01/03/23 05:46 01/03/23 05:46 Vital Signs Reviewed: Yes Constitutional Constitutional: no acute distress and cooperative HEENT Exam HEENT Exam: Normal Neck Exam Neck Exam: Normal Breast Exam Bilateral: Breast Exam: Normal and Soft Nipple Exam: Normal and Uninjured Respiratory Exam Respiratory Exam: Normal Cardiovascular Exam Cardiovascular Exam: Normal Abdominal Exam Abdomen: Other (soft, nontender) Fundal Exam Fundus: Below Umbilicus and Firm Rectal Exam Rectal Exam: Normal Exam Perineum: Edematous and Repair Intact Extremities Exam Extremity Exam: Normal, Full ROM and Warm to Touch Back/Spine/Pelvis Exam Back Exam: Normal Skin Exam Skin Exam: Normal Neurological Exam Neurological Exam: Normal (nml patellar and pedal reflexes, no clonus) Psychiatric Exam Psychiatric Exam: Normal Results Hemoglobin/Hematocrit: Hgb 11.9 g/dL (11.2-15.7) D 01/03/23 06:37 Hct 33.5 % (36.0-46.0) L 01/03/23 06:37 Abnormal Lab Findings: Abnormal Labs 01/01/23 01/02/23 01/02/23 16:31 06:55 13:42 WBC 11.30 H 11.78 H RBC 3.83 L 2.72 L Hgb 8.9 L D Hct 35.9 L 25.3 L Plt Count 115 L Sodium 134 L Carbon Dioxide 17.2 L Anion Gap 12.8 H Creatinine 0.5 L Calcium 7.4 L AST 73 H 47 H ALT 61 H Alkaline Phosphatase 143 H 147 H Total Protein 4.6 L Albumin 2.8 L 3.0 L 1.9 L 01/03/23 06:37 WBC 12.83 H RBC 3.64 L Hgb Hct 33.5 L Plt Count Sodium Carbon Dioxide Anion Gap Creatinine Calcium AST 72 H ALT Alkaline Phosphatase 125 H Total Protein 6.2 L Albumin 2.6 L
[2023-01-03] MEDS: Docusate Sodium 100 MG CAP PO ×2 (09:30→19:39)
[2023-01-03 15:33] VITALS: BP 125/88; PULSE 68; RESP 19; TEMP 36.5; O2SAT 99
[2023-01-03 19:54] VITALS: BP 144/93; PULSE 69; RESP 16; TEMP 36.7; O2SAT 98
[2023-01-04 00:40] VITALS: BP 131/93; PULSE 78; RESP 18; TEMP 36.7; O2SAT 100
[2023-01-04 06:05] VITALS: BP 147/101; PULSE 78; RESP 16; TEMP 36.6; O2SAT 99
[2023-01-04] MEDS: Acetaminophen 325 MG TAB 650 MG PO ×2 (06:20→11:58)
[2023-01-04 08:00] VITALS: BP 150/95; PULSE 75; RESP 14; TEMP 36.9
[2023-01-04] MEDS: Docusate Sodium 100 MG CAP PO (08:18)
--- NOTE | 2023-01-04 08:45 | OBPPV_ITS ---
Date of service: 01/04/23 Time of Service: 08:45 Assessment and Plan Assessment and plan (1) Term delivered: Status: Acute Assessment and plan: A: PPD#2 going well Satisfied with experience P: Hopefully discharge today pending lab results and response to anti- hypertensive Would have pt return for BP check in 24-[address] Macias consulting Written instructions reviewed and given to pt Pt desires natural family planning (2) Pre-eclampsia affecting puerperium: Status: Acute Assessment and plan: BP's fredy overnight to 140-150 over 90-100 Pt remains asymptomatic Urine output overnight >[address]s Macias and Miguel Will begin Labetalol 100 mg PO BID Repeat labs this morning Subjective Subjective Patient comments: No complaints, Pain well controlled, Tolerating diet and Flatus present Patient's Mood: happy [place] baby status: Doing well, Nursing well, Rooming in and Strong Bonding Observed [place] feeding status: Exclusively breast feeding Exam Physical Exam Vital signs: Temp Pulse Resp BP Pulse Ox 98.4 F 75 14 150/95 H 99 01/04/23 08:00 01/04/23 08:00 01/04/23 08:00 01/04/23 08:00 01/04/23 06:05 Vital Signs Reviewed: Yes Constitutional Constitutional: no acute distress and cooperative HEENT Exam HEENT Exam: Normal Neck Exam Neck Exam: Normal Breast Exam Bilateral: Breast Exam: Normal and Soft Respiratory Exam Respiratory Exam: Normal Cardiovascular Exam Cardiovascular Exam: Normal Abdominal Exam Abdomen: Other (soft, nontender) Fundal Exam Fundus: Below Umbilicus and Firm Rectal Exam Rectal Exam: Normal Exam Perineum: Edematous and Repair Intact Extremities Exam Extremity Exam: Normal, Full ROM and Warm to Touch Back/Spine/Pelvis Exam Back Exam: Normal Skin Exam Skin Exam: Normal Neurological Exam Neurological Exam: Normal (nml patellar and pedal reflexes, no clonus) Psychiatric Exam Psychiatric Exam: Normal Hemorrrhage Note IV Site Left Hand: IV Catheter Gauge: 20
[2023-01-04 09:04] LABS: HCT 38.1 % (36.0-46.0); MCH 32.3 pg (27.0-33.0); MCHC 34.1 % (32.0-36.0); MCV 95 fL (80-95); MPV 9.9 fL (8.0-11.0); Platelet Count 186 10^3/uL (130-400); RBC 4.03 10^6/uL (3.93-5.22); RDW 12.7 % (11.7-14.6); RDW-SD 44.1 fL; WBC 10.34 10^3/uL (4.4-10.8)
[2023-01-04] MEDS: Labetalol 100 MG TAB PO (09:21)
[2023-01-04 09:23] LABS: ALT 78 U/L (14-59); AST 96 U/L (15-37); Albumin 2.8 g/dL (3.4-5.0); Alkaline Phosphatase 124 U/L (46-116); Anion Gap 9.8 mmol/L (3-11); BUN 18 mg/dL (7-18); Bilirubin, Total 0.3 mg/dL (0.2-1.0); CO2 26.2 mmol/L (21.0-32.0); Calcium 9.2 mg/dL (8.5-10.1); Chloride 103 mmol/L (98-107); Estimated GFR 80.18 (mL/min/1.73m2); Glucose 76 mg/dL (74-106); Sodium 139 mmol/L (136-145)
[2023-01-04 09:39] VITALS: BP 124/85; PULSE 75; RESP 14
[2023-01-04 10:33] VITALS: BP 117/80; PULSE 75
[2023-01-04] MEDS: Ibuprofen 600 MG TAB PO (11:58)
[2023-01-04 12:00] VITALS: BP 122/85; PULSE 75; RESP 14; TEMP 36.4
--- NOTE | 2023-01-04 12:38 | DSE_ITS ---
Date of service: 01/04/23 Time of Service: 12:39 DS: Diagnosis Discharge Diagnosis (1) Term delivered: Status: Acute (2) Pre-eclampsia affecting puerperium: Status: Acute Discharge Plan Disposition Patient Disposition: Home Condition: Improving Discharge Details Reason For Visit: Gestational Hypertention Admit Date/Time: 01/01/23 17:28 Admit Provider: Tea Ang Attending Provider: Tea Ang Primary Care Provider: Tiera Merida Hospital Course Hospital Course: Admit for gestational HTN, on HD#2, development of pre-eclampsia treated with labetalol, discharge on HD#4 Home Meds and New Rx's Prescriptions: No Action prenat.vits,teena,[id number] Tablet 1 tab PO DAILY labetalol 100 mg tablet 100 mg PO BID Qty: 60 3RF Discharge Instructions Additional Instructions: Return to center within 48 hrs for BP check and repeat lab draw. Report increasing symptoms such as headache, upper abdominal pain, vomiting and visual disturbances. Stand Alone Forms: BC Instructions, BC Post Vaginal Deliver Activity:: Activity as Tolerated Equipment/Supplies:: No Equipment Needed Diet:: Normal Diet OB:DS Summary Summary Vaginal Delivery Method: Spontaneaous Episiotomy Description: Midline Midline Degree: 1st Degree Laceration Description: Perineal Laceration Extension: First Degree Contraception Discussed Contraception Discussed: Yes (natural family planning) Contraceptive Plan: Not planning to use, [place] Infant Gender-Baby A: Female weight: 6 lb 7.494 oz Status at Discharge Functional status at discharge: independent ambulation Overall status at discharge: patient is progressing back to baseline Mental Status: mental status grossly normal Speech and Movement: speech and movement normal and speech clear Mood: congruent mood Affect: normal affect Exam Physical Exam Vital signs: Temp Pulse Resp BP Pulse Ox 97.5 F L 75 14 122/85 99 01/04/23 12:00 01/04/23 12:00 01/04/23 12:00 01/04/23 12:00 01/04/23 06:05 Constitutional Constitutional: no acute distress and cooperative HEENT Exam HEENT Exam: Normal Neck Exam Neck Exam: Normal Breast Exam Bilateral: Breast Exam: Normal and Soft Respiratory Exam Respiratory Exam: Normal Cardiovascular Exam Cardiovascular Exam: Normal Abdominal Exam Abdomen: Other (soft, nontender) Fundal Exam Fundus: Below Umbilicus and Firm Rectal Exam Rectal Exam: Normal Exam Perineum: Edematous and Repair Intact Extremities Exam Extremity Exam: Normal, Full ROM and Warm to Touch Back/Spine/Pelvis Exam Back Exam: Normal Skin Exam Skin Exam: Normal Neurological Exam Neurological Exam: Normal (nml patellar and pedal reflexes, no clonus) Psychiatric Exam Psychiatric Exam: Normal PFSH All Active Problems (Updated 01/04/23 @ 08:49 by Nikole Shaikh) Pre-eclampsia affecting puerperium (Acute) Term delivered (Acute) Elevated liver enzymes (Acute) Elevated TSH (Acute) Enlarged thyroid (Acute) Medical History (Updated 01/04/23 @ 08:49 by Nikole Shaikh) Gestational hypertension Uterine contractions Family history of thyroid disease Family history of congenital heart defect Renny's father - bicuspid aortic valve Positive test Closed fracture of humerus L Family History (Updated 07/09/22 @ 13:45 by Tea Ang CNM) Father Essential hypertension Grandmother Personal history of malignant neoplasm Heart disease Maternal Grandmother Breast cancer age 60 Paternal Grandfather Heart disease Maternal Grandfather Parathyroid abnormality parathyroid nodules removed Mother Parathyroid abnormality Social History Smoking/Tobacco Use Status: Never Smoking risk assessment performed?: Yes Drug use: Never Substance use type: does not use Housing: house Do you feel safe at home: Yes Do you feel safe in your relationship?: Yes Female Reproductive History Menstrual Age of Menarche: 17 control method: none History History 1 Para 0 Hx # Term Pregnancies 0 Multiple births 0 Hx # Pregnancies 0 Ectopic pregnancies 0 AB induced 0 Hx Number of Living Children 0 AB spontaneous 0 DS: Data Vitals/I&O Vitals and I&O: Vital Signs Temperature 97.5 F L 01/04/23 12:00 Temperature 98.2 F 01/01/23 17:36 Temperature Source Oral 01/04/23 12:00 Pulse 75 01/04/23 12:00 Pulse 85 01/01/23 22:18 Pulse Rhythm Regular 01/04/23 08:00 Respiratory Rate 14 01/04/23 12:00 Blood Pressure 122/85 01/04/23 12:00 Blood Pressure 139/93 01/01/23 22:18 Blood Pressure Mean 97 01/04/23 12:00 Pulse Oximetry 99 11/03/23 06:05 Pain Level 3 01/04/23 11:58 Comment B/P prior to labetolol 100 mg PO. 01/04/23 09:39 Intake & Output 01/03/23 01/04/23 01/04/23 23:59 11:59 23:59 Output Total 600 / 2500 1700 / 2100 400 / 2100 Balance -600 / -2500 -1700 / -2100 -400 / -2100 Output: Urine 600 / 2500 1700 / 2100 400 / 2100 Other: Urine Color Pale Yellow Urine Appearance Clear Data Completed and Pending Labs on day of discharge: Labs from last 24 hours 01/04/23 08:55 WBC 10.34 RBC 4.03 Hgb 13.0 Hct 38.1 MCV 95 MCH 32.3 MCHC 34.1 RDW 12.7 Plt Count 186 MPV 9.9 Sodium 139 Potassium 4.0 Chloride 103 Carbon Dioxide 26.2 Anion Gap 9.8 BUN 18 Creatinine 1.0 Est GFR (CKD-EPI 2020) 80.18 Glucose 76 Calcium 9.2 Total Bilirubin 0.3 AST 96 H ALT 78 H Alkaline Phosphatase 124 H Total Protein 7.0 Albumin 2.8 L
== END 2023-01-04 13:35 | disposition home or self-care (01) | DRG 807 ==
LOC: BCD 18:00 → OBS 18:00
PROVIDERS: Advanced Practice Midwife; Admitting Provider Advanced Practice Midwife; PCP Family Medicine; Visit Provider Advanced Practice Midwife
DX: O13.4 Gestational [pregnancy-induced] hypertension without significant proteinuria, complicating childbirth (principal); Z37.0 Single live birth; O14.95 Unspecified pre-eclampsia, complicating the puerperium; O99.284 Endocrine, nutritional and metabolic diseases complicating childbirth; E04.9 Nontoxic goiter, unspecified; Z3A.40 40 weeks gestation of pregnancy; Z83.49 Family history of other endocrine, nutritional and metabolic diseases; R79.89 Other specified abnormal findings of blood chemistry; O75.89 Other specified complications of labor and delivery
CPT/HCPCS: 36415; 76815; 80053; 85027; 86850; 86900; 86901; 87635; 59025; 82565; 83615; 84156; 84550; J3490

== ENCOUNTER 2023-01-04 18:10 | Outpatient (CLI) | payer OTHER, SELFPAY ==
[2023-01-04] MEDS: Labetalol 100 MG TAB PO (18:40)
== END 2023-01-04 18:11 | disposition home or self-care (01) ==
PROVIDERS: PCP Family Medicine; Visit Provider Advanced Practice Midwife
DX: O14.15 Severe pre-eclampsia, complicating the puerperium (principal); R74.8 Abnormal levels of other serum enzymes

== ENCOUNTER 2023-01-06 07:20 | Outpatient (CLI) | payer OTHER, SELFPAY ==
[2023-01-06 08:44] VITALS: BP 134/94; PULSE 82
[2023-01-06 08:49] LABS: HCT 37.2 % (36.0-46.0); HGB 12.5 g/dL (11.2-15.7); MCH 32.4 pg (27.0-33.0); MCHC 33.6 % (32.0-36.0); MCV 96 fL (80-95); MPV 9.5 fL (8.0-11.0); Platelet Count 208 10^3/uL (130-400); RBC 3.86 10^6/uL (3.93-5.22); RDW 12.8 % (11.7-14.6); WBC 6.29 10^3/uL (4.4-10.8)
[2023-01-06 09:05] LABS: ALT 79 U/L (14-59); AST 72 U/L (15-37); Albumin 2.9 g/dL (3.4-5.0); Alkaline Phosphatase 118 U/L (46-116); Anion Gap 8.8 mmol/L (3-11); BUN 13 mg/dL (7-18); Bilirubin, Total 0.4 mg/dL (0.2-1.0); CO2 27.2 mmol/L (21.0-32.0); CREATININE 0.9 mg/dL (0.55-1.02); Calcium 8.9 mg/dL (8.5-10.1); Chloride 103 mmol/L (98-107); Estimated GFR 90.98 (mL/min/1.73m2); Glucose 98 mg/dL (74-106); Potassium 3.7 mmol/L (3.5-5.1); Sodium 139 mmol/L (136-145)
[2023-01-06 09:07] VITALS: BP 132/89; PULSE 86
--- NOTE | 2023-01-06 09:19 | PGE_ITS ---
Date of Service Date of service: 01/06/23 Time of Service: 09:24 Assessment and Plan Assessment and plan (1) Pre-eclampsia affecting puerperium: Status: Acute Assessment and plan: A: s/p , HELLP, stable, discussed with Dr. Macias P: RTO @ 1 wk PP for repeat labs and BP check Continue medication at current dose Pt verbalizes agreement with plan PPD#4; taking labetalol 100 mg PO BID BP 130's over 90, remains asymptomatic Plts 208, LFTS 72/79 & stable, creat 0.9 Pt reports voiding qs, going well (2) Elevated liver enzymes: Status: Acute Subjective Subjective Patient reports: no new complaints and tolerating a regular diet Exam Const General: cooperative, healthy appearing, comfortable, no acute distress, well developed and well groomed Nutritional Appearance: average body habitus and well nourished Orientation: alert, awake and oriented x3 Chest Breast inspection: normal inspection of the breasts Resp Effort & Inspection: normal respiratory effort and able to speak in complete sen tences Cardio Rate: regular rate Rhythm: regular rhythm Neuro Gait: normal gait DTR's: Rt Patellar: 1+ and Lt Patellar: 1+ Extrem General: normal to inspection, full ROM and normal gait Psych Appearance: grossly normal and well kempt Mood: congruent mood Thought Process: normal Thought Content: normal Insight: insight good Objective Last Vital Signs Pulse 86 01/06/23 09:07 BP 132/89 01/06/23 09:07 Laboratory Results - last 24 hr 01/06/23 08:45 WBC 6.29 RBC 3.86 L Hgb 12.5 Hct 37.2 MCV 96 H MCH 32.4 MCHC 33.6 RDW 12.8 Plt Count 208 MPV 9.5 Sodium 139 Potassium 3.7 Chloride 103 Carbon Dioxide 27.2 Anion Gap 8.8 BUN 13 Creatinine 0.9 Est GFR (CKD-EPI 2020) 90.98 Glucose 98 Calcium 8.9 Total Bilirubin 0.4 AST 72 H ALT 79 H Alkaline Phosphatase 118 H Total Protein 7.0 Albumin 2.9 L Time Spent with Patient Time Spent with Patient: 25-34 minutes Time was spent: preparing to see the patient(eg.review tests), obtaining and/or reviewing separately otained hiistory, ordering medications,tests, procedures, referring, communicating with other health multi care technician, indepentently interpreting results and counseling the patient
== END 2023-01-06 09:22 ==
LOC: BCD 07:23 → OBS 08:23
PROVIDERS: PCP Family Medicine; Visit Provider Advanced Practice Midwife
DX: O14.15 Severe pre-eclampsia, complicating the puerperium (principal); R74.8 Abnormal levels of other serum enzymes
CPT/HCPCS: 36415; 80053; 85027; 99211

== ENCOUNTER 2023-01-09 07:26 | Outpatient (CLI) | payer OTHER, SELFPAY ==
[2023-01-09 08:27] VITALS: BP 133/94; PULSE 90; RESP 18; TEMP 36.9
--- NOTE | 2023-01-09 09:35 | PGE_ITS ---
Date of Service Date of service: 01/09/23 Time of Service: 08:30 Assessment and Plan Assessment and plan (1) Pre-eclampsia affecting puerperium: Status: Acute Assessment and plan: 1. Normalized BP on Labetalol, reviewed with Dr. Rivera who agrees that continued medication and recovery at home as is current plan and follow up in 1 week in office. 2. Physician does not feel repeat CBC or CMP is needed at this time. (2) Term delivered: Status: Acute Assessment and plan: 1. Normal PP state, breast feeding is going well. Continue present management 2. RTO as scheduled next week. Subjective Subjective Interval history since last seen: Renny presents 1 week PP for BP check on BC due to HTN in labor and . BP stable on 100mg labetalol twice daily. Denies signs of pre-eclampsia. Breast feeding is going well. No edema. Voiding in moderate to large amounts. Exam Const General: cooperative, healthy appearing and comfortable Nutritional Appearance: average body habitus Orientation: alert and oriented x3 HENMT Head: normal to inspection Ears: hearing grossly normal bilaterally and external ears normal Eyes General: appearance normal, both eyes and all related structures Neck Neck: normal visual inspection Resp Effort & Inspection: normal respiratory effort and able to speak in complete sentences Cardio Rate: regular rate Extrem General: normal to inspection, full ROM, no pedal edema, no calf tenderness and normal gait Psych Mood: congruent mood Affect: normal affect Attitude: cooperative Thought Process: normal Thought Content: normal Insight: insight good Judgment: judgment good Objective Last Vital Signs Temp 98.4 F 01/09/23 08:27 Pulse 90 01/09/23 08:27 Resp 18 01/09/23 08:27 BP 133/94 H 01/09/23 08:27 Time Spent with Patient Time Spent with Patient: 25-34 minutes Time was spent: preparing to see the patient(eg.review tests), obtaining and/or reviewing separately otained hiistory, referring, communicating with other health special needs child caregiver and counseling the patient
[2023-01-10 13:33] VITALS: BP 130/66; PULSE 92
== END 2023-01-09 08:44 ==
LOC: BCD 07:30 → OBS 08:20
PROVIDERS: PCP Family Medicine; Visit Provider Advanced Practice Midwife
DX: O14.95 Unspecified pre-eclampsia, complicating the puerperium (principal)
CPT/HCPCS: 99211

== ENCOUNTER 2023-02-13 16:57 | Outpatient (CLI) | payer OTHER, SELFPAY ==
[2023-02-13 11:02] LABS: HCT 43.4 % (36.0-46.0); MCH 32.2 pg (27.0-33.0); MCHC 34.6 % (32.0-36.0); MCV 93 fL (80-95); MPV 9.7 fL (8.0-11.0); Platelet Count 229 10^3/uL (130-400); RBC 4.66 10^6/uL (3.93-5.22); RDW 11.2 % (11.7-14.6); RDW-SD 38.4 fL; WBC 4.63 10^3/uL (4.4-10.8)
[2023-02-13 11:51] LABS: ALT 72 U/L (14-59); AST 43 U/L (15-37); Albumin 4.2 g/dL (3.4-5.0); Alkaline Phosphatase 104 U/L (46-116); Anion Gap 6.9 mmol/L (3-11); BUN 20 mg/dL (7-18); Bilirubin, Total 0.5 mg/dL (0.2-1.0); CO2 30.1 mmol/L (21.0-32.0); CREATININE 1.2 mg/dL (0.55-1.02); Calcium 9.9 mg/dL (8.5-10.1); Chloride 104 mmol/L (98-107); Estimated GFR 64.42 (mL/min/1.73m2); Glucose 92 mg/dL (74-106); Potassium 4.1 mmol/L (3.5-5.1); Sodium 141 mmol/L (136-145); TSH (W/Ref FT4) 1.86 uIU/mL (0.36-3.74); Total Protein 8.2 g/dL (6.4-8.2)
== END 2023-02-13 16:58 | disposition home or self-care (01) ==
LOC: LBO 16:57
PROVIDERS: PCP Family Medicine; Visit Provider Advanced Practice Midwife
DX: O14.95 Unspecified pre-eclampsia, complicating the puerperium (principal); E04.9 Nontoxic goiter, unspecified; Z39.1 Encounter for care and examination of lactating mother
CPT/HCPCS: 36415; 80053; 85027; 84443

== ENCOUNTER 2023-03-25 16:29 | Outpatient (REF) | payer SELFPAY ==
[2023-03-25 15:43] LABS: ALT 55 U/L (14-59); AST 40 U/L (15-37); Albumin 4.2 g/dL (3.4-5.0); Alkaline Phosphatase 92 U/L (46-116); Anion Gap 6.2 mmol/L (3-11); BUN 12 mg/dL (7-18); Bilirubin, Total 0.6 mg/dL (0.2-1.0); CO2 28.8 mmol/L (21.0-32.0); Calcium 9.7 mg/dL (8.5-10.1); Chloride 104 mmol/L (98-107); Estimated GFR 80.18 (mL/min/1.73m2); Glucose 87 mg/dL (74-106); Potassium 4.3 mmol/L (3.5-5.1); Sodium 139 mmol/L (136-145)
== END 2023-03-25 16:30 | disposition home or self-care (01) ==
LOC: NCHCN 16:29
PROVIDERS: PCP Family Medicine; Visit Provider Family Medicine
DX: Z87.59 Personal history of other complications of pregnancy, childbirth and the puerperium (principal)
CPT/HCPCS: 80053

== ENCOUNTER 2024-04-10 01:19 | Outpatient (CLI) | payer BC, SELFPAY ==
--- OUTSIDE RECORDS SUMMARY | 2024-04-10 01:28 | XMS_ITS | Encounter Summary ---
Author Organization [facility] Address [address] [place] [address] Care Team Providers Care Lead Handler Name Role Phone Unknown, Provider Primary Care Provider Unava ilable Encounter Details Date Type Department Care Team (Late st Contact Info) Description 06/09/2022 Lab Requisition [facility] Pathology & Laboratory Medicine - [address] [address] Outr Resulting Lab, Provider Social History Tobacco Use Types Packs/Day Years Used Date Smoking Tobacco: Never Assessed Comments Unknown Sex and Gender Information Value Date Recorded Sex Assigned at Not on file Legal Sex Female 13:53 EDT Gender Identity Not on file Sexual Orientation Not on file documented as of this encounter Plan of Treatment Not on file documented as of this encounter Visit Diagnoses Not on filedocumented in this encounter Care Teams Lead Handler Relationship Specialty Start Date End Date Unknown, Provider, PCP - General 08/15/18 documented as of this encounter
--- OUTSIDE RECORDS SUMMARY | 2024-04-10 01:28 | XMS_ITS | Encounter Summary ---
Author Organization [facility] Address [address] [place] [address] Care Team Providers Care Manager Transition Name Role Phone Unknown, Provider Primary Care Provider Unava ilable Encounter Details Date Type Department Care Team (Late st Contact Info) Description 02/17/2020 Lab Requisition [facility] Pathology & Laboratory Medicine - [address] [address] Outr Resulting Lab, Provider Social History Tobacco Use Types Packs/Day Years Used Date Smoking Tobacco: Never Assessed Comments Unknown Sex and Gender Information Value Date Recorded Sex Assigned at Not on file Legal Sex Female 13:53 EDT Gender Identity Not on file Sexual Orientation Not on file documented as of this encounter Plan of Treatment Not on file documented as of this encounter Procedures Procedure Name Priority Date/Time Associated Diagnosis Comments ZZCOVID-19 TEST [facility] PCR Today 02/16/2020 13:00 EST COVID-19 TESTING Routine 02/16/2020 13:0 0 EST documented in this encounter Results * COVID-19 TEST [facility] PCR (02/16/2020 13:00 EST) Swab ENTIRE NASOPHARYNX / Unknown 02/16/2020 13:00 EST 02/17/2020 16:19 EST us Provider Outr Resulting Lab MICROBIOLOGY - GENER AL ORDERABLES Final Result [facility] [address] [place] [address] * COVID-19 TESTING (02/16/2020 13:00 EST) COVID-19 rt-PCR Result Negative Negative 02/18/2020 16:31 EST [facility] Comment: Negative results do not preclude 2019-nCoV infection and should not be used as the sole basis for treatment or other patient management decisions. Negative results must be combined with clinical observations, patient history, and epidemiological information. This test was developed and its performance characteristics determined by [facility]. It has not been cleared or approved by the US Food and Drug Administration. FDA does not require this test to go through premarket FDA review. This test is used for clinical purposes. It should not be regarded as investigational or for research. This laboratory is certified under the Clinical Laboratory Improvement Amendments (CLIA) as qualified to perform high complexity clinical laboratory testing. This test is based on the CDC COVID-19 Emergency Use Authorization (EUA) assay, with minor modification as defined by the FDA Performed on the [employer] 7 Flex. Performing Lab [facility] Lab 02/18/2020 16:31 EST [facility] Swab 02/16/2020 13:0 0 EST 02/17/2020 16:19 EST us Provider Outr Resulting Lab MICROBIOLOGY - GENER AL ORDERABLES Final Result [facility] [address] [place] [address] documented in this encounter Visit Diagnoses Not on filedocumented in this encounter Care Teams Manager Transition Relationship Specialty Start Date End Date Unknown, Provider, PCP - General 08/15/18 documented as of this encounter
--- OUTSIDE RECORDS SUMMARY | 2024-04-10 01:28 | XMS_ITS | Encounter Summary ---
Author Organization [facility] Address [address] [place] [address] Care Team Providers Care Fire Watcher Name Role Phone Unknown, Provider Primary Care Provider Unava ilable Encounter Details Date Type Department Care Team (Late st Contact Info) Description 06/08/2022 Lab Requisition [facility] Pathology & Laboratory Medicine - [address] [id number] Outr Resulting Lab, Provider Social History Tobacco [...] Procedure Name Priority Date/Time Associated Diagnosis Comments HIV 1/2 ANTIGEN AND ANTIBODY, 4TH GENERATION Routine 06/08/2022 14:02 EDT documented in this encounter Results * HIV 1/2 ANTIGEN AND ANTIBODY, 4TH GENERATION (06/08/2022 14:02 EDT) HIV 1 and 2 Antibody/p24 Antigen, 4th Generation Negative Negative 06/09/2022 12:44 EDT [facility] Comment:If acute HIV-1 infec tion is suspected in a high risk patient, submit plasma specimen for HIV-1 RNA quantitation test. Blood VENOUS BLOOD / Unknown 06/08/2022 14:02 EDT 06/08/2022 22:20 EDT Narrative [facility] - 06/09/2022 12:44 EDT Fourth Generation assay performed on the Siemens Siteminisaur XPT. us Provider Outr Resulting Lab IMMUNOLOGY AND SEROL OGY ORDERABLES Final Result [facility] [address] [place] [address] documented in this encounter Visit Diagnoses Not on filedocumented in this encounter Care Teams Fire Watcher Relationship Specialty Start Date End Date Unknown, Provider, PCP - General 08/15/18 documented as of this encounter
--- OUTSIDE RECORDS SUMMARY | 2024-04-10 01:28 | XMS_ITS | Encounter Summary ---
Author Organization [facility] Address [address] [place] [address] Care Team Providers Care Television Repairer Name Role Phone Unknown, Provider Primary Care Provider Unava ilable Encounter Details Date Type Department Care Team (Late st Contact Info) Description 06/08/2022 Lab Requisition [facility] Pathology & Laboratory Medicine - [facility] [address] [place] [address] Outr Resulting Lab, Provider Social History Tobacco [...] Procedure Name Priority Date/Time Associated Diagnosis Comments HOLD SST Today 06/08/2022 14:02 EDT HOLD SST Today 06/08/2022 14:02 EDT RUBELLA IGG ANTIBODY Today 06/08/2022 14:02 EDT VARICELLA IGG ANTIBODY Today 06/08/2022 14:02 EDT documented in this encounter Results * HOLD SST (06/08/2022 14:02 EDT) Hold Hold 06/08/2022 23:31 EDT [facility] Blood VENOUS BLOOD / Unknown 06/08/2022 14:02 EDT 06/08/2022 22:22 EDT us Provider Outr Resulting Lab LAB INFO SERVICE AND SUPPORT & PHONE RESULT Final Result Performing Organization Address City/[facility]/ZIP Co de Phone Number [facility] [address] [place] [address] * HOLD SST (06/08/2022 14:02 EDT) Hold Hold 06/08/2022 23:31 EDT [facility] Blood VENOUS BLOOD / Unknown 06/08/2022 14:02 EDT 06/08/2022 22:21 EDT us Provider Outr Resulting Lab LAB INFO SERVICE AND SUPPORT & PHONE RESULT Final Result Performing Organization Address [facility] Co de Phone Number [facility] [address] [place] [address] * VARICELLA IGG ANTIBODY (06/08/2022 14:02 EDT) Varicella IgG Ab Positive See Note 06/11/2022 11:09 EDT [facility] Comment:Presence of detectab le Varicella Zoster virus IgG antibodies. Blood VENOUS BLOOD / Unknown 06/08/2022 14:02 EDT 06/08/2022 22:20 EDT us Provider Outr Resulting Lab IMMUNOLOGY AND SEROL OGY ORDERABLES Final Result Performing Organization Address [facility] Co de Phone Number [facility] [address] [place] [id number] * RUBELLA IGG ANTIBODY (06/08/2022 14:02 EDT) Rubella IgG Ab Positive See Note 06/11/2022 11:16 EDT [facility] Comment:Positive for IgG ant ibodies to Rubella virus. Blood VENOUS BLOOD / Unknown 06/08/2022 14:02 EDT 06/08/2022 22:20 EDT us Provider Outr Resulting Lab CHEMISTRY & BLOOD GA S ORDERABLES Final Result Performing Organization Address City/[facility]/ZIP Co de Phone Number [facility] [address] [place] [address] documented in this encounter Visit Diagnoses Not on filedocumented in this encounter Care Teams Television Repairer Relationship Specialty Start Date End Date Unknown, Provider, PCP - General 08/15/18 documented as of this encounter
--- OUTSIDE RECORDS SUMMARY | 2024-04-10 01:28 | XMS_ITS | Encounter Summary ---
Author Organization [facility] Address [address] [place] [address] Care Team Providers Care Wheel Alignment Mechanic Name Role Phone Unknown, Provider Primary Care Provider Unava ilable Encounter Details Date Type Department Care Team (Late st Contact Info) Description 08/14/2018 Results Only [facility] [phone] Sandra Oliveira, PICKLE PUMPER [address] [place] [phone] Social History Tobacco Use Types Packs/Day Years [...] Procedure Name Priority Date/Time Associated Diagnosis Comments PAP TEST- RESULT ONLY Routine 08/14/2018 0:00 EDT documented in this encounter Results * PAP TEST- RESULT ONLY (08/14/2018 0:00 EDT) Pathology Report: CYTOPATHOLOGY REPORT Reports generated via electronic interface contain original data; however they are lacking the format of the original report. Caution should be taken when reading/interpreti ng unformatted reports. Name: ? TEN RENNY ? Accession #: ? [id number] : ? 1995 (Age: 23) ??F ?Collect Date: ? 08/14/2018 Location: ? [facility] ? Receive Date: ? 08/15/2018 Provider: ?SANDRA OLIVEIRA APRN Copy to: ?JERRY GRANADOS MD ? Specimen/Source: ?Pap Test, Cervix, ThinPrep Imaging System with manual evaluation Last Menstrual Period: ? 08/08/2018 Hormonal/Contracep tive Status: ? Oral contraceptives Other: ? First Pap ? SPECIMEN ADEQUACY ? Satisfactory for Evaluation - transformation zone component present GENERAL CATEGORIZATION ? Negative for Intraepithelial Lesion or Malignancy ? Document reviewed and electronically signed by: ? JULIO Mariscal(ASCP) ? Report Date: ??08/20/2018 08:57 End of Report [facility] 08/14/2018 08/15/2018 us Sandra Oliveira APRN PATHOLOGY ORDERABLES Lindsey winter Result [facility] [address] [place] [address] documented in this encounter Visit Diagnoses Not on filedocumented in this encounter Care Teams Wheel Alignment Mechanic Relationship Specialty Start Date End Date Unknown, Provider, PCP - General 08/15/18 documented as of this encounter
--- OUTSIDE RECORDS SUMMARY | 2024-04-10 01:28 | XMS_ITS | Encounter Summary ---
Author Organization [facility] Address [address] [place] [address] Care Team Providers Care Soap Press Feeder Name Role Phone Unknown, Provider Primary Care Provider Unava ilable Encounter Details Date Type Department Care Team (Late st Contact Info) Description 06/10/2022 Lab Requisition [facility] Pathology & Laboratory Medicine - [address] [address] Tea Ang CNM [facility] [place], [place] [id number] Encounter for other general examination Social History Tobacco Use Types Packs/Day Years [...] Procedure Name Priority Date/Time Associated Diagnosis Comments CHLAMYDIA/N. GONORRHOEAE AMPLIFIED NUCLEIC ACID Today 06/08/2022 13:00 EDT Encounter for other general examination documented in this encounter Results * CHLAMYDIA/N. GONORRHOEAE AMPLIFIED RNA (06/08/2022 13:00 EDT) Neisseria gonorrhoeae Result Negative Negative 06/11/2022 17:04 EDT [facility] Chlamydia trachomatis Result Negative Negative 06/11/2022 17:04 EDT [facility] Swab ENTIRE VAGINA / Unknown 06/08/2022 13:00 EDT 06/10/2022 17:33 EDT us Tea PAGE MICROBIOLOGY - GENERAL ORDERABLES Final Result [facility] [address] [place] [address] documented in this encounter Visit Diagnoses Diagnosis Encounter for other general examination documented in this encounter Care Teams Soap Press Feeder Relationship Specialty Start Date End Date Unknown, Provider, PCP - General 08/15/18 documented as of this encounter
--- OUTSIDE RECORDS SUMMARY | 2024-04-10 01:28 | XMS_ITS | Clinical Summary ---
Author Organization [facility] [place] [address] Care Team Providers Care Professional Organizer Name Role Phone Unknown Primary Care Provider Unavailabl e Allergies No known active allergies Medications Medication Sig Dispensed Refills Start Date End Date Status IRON/CALCIUM/VITAMIN D2 (CALCIUM-VITAMIN D2-IRON ORAL) Take by mouth. Active Social History Tobacco Use Types Packs/Day Years Used Date Smoking Tobacco: Never Sex and Gender Information Value Date Recorded Sex Assigned at Not on file Gender Identity Not on file Sexual Orientation Not on file Plan of Treatment Health Maintenance Due Date Last Done Comments HPV vaccine (1 - 3-dose series) 2012 HIV screen 07/09/2015 Hepatitis C Screening 07/09/2015 Hepatitis B vaccine (0-59 yrs) (1) 2016 Tetanus/Diphtheria/Pertussis Vaccines (1 - Tdap) 07/08 PAP Smear 2018 Covid-19 Vaccine (2023- season) 2023 Influenza (Flu) vaccine (1 o f 1 - Influenza standard series) 11/03/2023 Care Teams Professional Organizer Relationship Specialty Start Date End Date Unknown None PCP - General 07/18/21
--- OUTSIDE RECORDS SUMMARY | 2024-04-10 01:28 | XMS_ITS | Encounter Summary ---
Author Organization [facility] Address [address] [place] [address] Care Team Providers Care Reinforcement Maker Name Role Phone Unknown, Provider Primary Care Provider Unava ilable Encounter Details Date Type Department Care Team (Late st Contact Info) Description 11/30/2021 Lab Requisition [facility] Pathology & Laboratory Medicine - [address] [address] Ramona Aguayo, CALENDER LET OFF OPERATOR [address] [place] [phone] Encounter for other general examination Social History Tobacco Use Types Packs/Day Years Used Date Smoking Tobacco: Never Assessed Comments Unknown Sex and Gender Information Value Date Recorded Sex Assigned at Not on file Legal Sex Female 13:53 EDT Gender Identity Not on file Sexual Orientation Not on file documented as of this encounter Plan of Treatment Scheduled Orders Name Type Priority Associated Diagnoses Orde r Schedule PAP TEST Pathology Today Encounter for other general examination Ordered: 11/30/2021 documented as of this encounter Visit Diagnoses Diagnosis Encounter for other general examination documented in this encounter Care Teams Reinforcement Maker Relationship Specialty Start Date End Date Unknown, Provider, PCP - General 08/15/18 documented as of this encounter
--- OUTSIDE RECORDS SUMMARY | 2024-04-10 01:28 | XMS_ITS | Referral Summary ---
Author Organization [facility] Address [address] [place] [address] Care Team Providers Care Meat Loiner Name Role Phone Unknown, Provider MD Primary Care Provider Unava ilable Social History Tobacco Use Types Packs/Day Years Used Date Smoking Tobacco: Never Assessed Comments Unknown Sex and Gender Information Value Date Recorded Sex Assigned at Not on file Legal Sex Female 13:53 EDT Gender Identity Not on file Sexual Orientation Not on file Plan of Treatment Not on file Procedures Procedure Name Priority Date/Time Associated Diagnosis Comments HEPATITIS C AB W REFLEX TO HCV RNA BY PCR Routine 06/08/2022 14:02 EDT from Last 3 Months or Most Recently Relevant to Health Maintenance Results * HEPATITIS C AB W REFLEX TO HCV RNA BY PCR (06/08/2022 14:02 EDT) Hep C Antibody Negative Negative 06/11/2022 10:52 EDT [facility] Blood VENOUS BLOOD / Unknown 06/08/2022 14:02 EDT 06/08/2022 22:23 EDT us Provider Outr Resulting Lab CHEMISTRY & BLOOD GA S ORDERABLES Final Result [facility] [address] [place] [address] from Last 3 Months or Most Recently Relevant to Health Maintenance Care Teams Meat Loiner Relationship Specialty Start Date End Date Unknown, Provider, PCP - General 08/15/18
--- OUTSIDE RECORDS SUMMARY | 2024-04-10 01:28 | XMS_ITS | Encounter Summary ---
Author Organization [facility] Address [address] [place] [address] Care Team Providers Care Articulation Officer Name Role Phone Unknown, Provider Primary Care Provider Unava ilable Encounter Details Date Type Department Care Team (Late st Contact Info) Description 11/30/2021 Lab Requisition [facility] Pathology & Laboratory Medicine - [address] [address] Ramona Aguayo, PRINTER REPAIR TECHNICIAN [address] [place] [address] Encounter for other general examination Social History [...] Name Priority Date/Time Associated Diagnosis Comments PAP TEST Today 11/29/2021 15:00 EDT Encounter for other general examination documented in this encounter Results * PAP TEST (11/29/2021 15:00 EDT) Specimens A. Cervix and/or Endocervix , ThinPrep Imaging System with Manual Evaluation 12/01/2021 13:50 EDT [facility] Specimen Adequacy Satisfactory for Evaluation - transformation zone component present 12/01/2021 13:50 EDT [facility] General Categorization Negative for intraepithelial lesion or malignancy 12/01/2021 13:50 EDT [facility] Attestation . 12/01/2021 13:50 T [facility] at 1350 Clinical History See below 12/02/19 13:50 EDT [facility] Performing Lab [facility] 12/01/2021 13:50 EDT [facility] Scanned Images 12/01/2021 13:50 EDT [facility] Papanicolaou smear specimen (specimen) CERVIX UTERI STRUCTURE / Unknown 11/29/2021 15:00 EDT 11/30/2021 12:05 EDT us Ramona Aguayo APRN PATHOLOGY ORDERABLES Lindsey l Result [facility] [address] [place] [address] documented in this encounter Visit Diagnoses Diagnosis Encounter for other general examination documented in this encounter Care Teams Articulation Officer Relationship Specialty Start Date End Date Unknown, Provider, PCP - General 08/15/18 documented as of this encounter
--- OUTSIDE RECORDS SUMMARY | 2024-04-10 01:28 | XMS_ITS | Clinical Summary ---
Author Organization [facility] Address [address] [place] [address] Care Team Providers Care Rotary Helper Name Role Phone Unknown, Provider Primary Care Provider Unava ilable Social History Tobacco Use Types Packs/Day Years Used Date Smoking Tobacco: Never Assessed Comments Unknown Sex and Gender Information Value Date Recorded Sex Assigned at Not on file Legal Sex Female 13:53 EDT Gender Identity Not on file Sexual Orientation Not on file Plan of Treatment Health Maintenance Due Date Last Done Comments Hepatitis B Vaccine (1 of - 19+ 3-dose series) 07/08 COVID-19 Vaccine ( season) 2023 Hepatitis C Screen Completed 06/08/2022 Procedures Procedure Name Priority Date/Time Associated Diagnosis Comments HEPATITIS C AB W REFLEX TO HCV RNA BY PCR Routine 06/08/2022 14:02 EDT from Last 3 Months or Most Recently Relevant to Health Maintenance Results * HEPATITIS C AB W REFLEX TO HCV RNA BY PCR (06/08/2022 14:02 EDT) Hep C Antibody Negative Negative 06/11/2022 10:[address] [facility] Blood VENOUS BLOOD / Unknown 06/08/2022 14:02 EDT 06/08/2022 22:23 EDT us Provider Outr Resulting Lab CHEMISTRY & BLOOD GA S ORDERABLES Final Result [facility] [address] [place] [address] from Last 3 Months or Most Recently Relevant to Health Maintenance Care Teams Rotary Helper Relationship Specialty Start Date End Date Unknown, Provider, PCP - General 08/15/18
--- OUTSIDE RECORDS SUMMARY | 2024-04-10 01:28 | XMS_ITS | Encounter Summary ---
Author Organization [facility] Address [address] [place] [address] Care Team Providers Care Risk Analyst Name Role Phone Unknown, Provider Primary Care Provider Unava ilable Encounter Details Date Type Department Care Team (Late st Contact Info) Description 06/08/2022 Lab Requisition [facility] Pathology & Laboratory Medicine - [address] [address] Outr Resulting Lab, Provider Social History Tobacco [...] RNA BY PCR Routine 06/08/2022 14:02 EDT HEPATITIS B SURFACE ANTIGEN Routine 06/08/2022 14:02 EDT documented in this encounter Results * HEPATITIS B SURFACE ANTIGEN (06/08/2022 14:02 EDT) Hep B Surface Ag Negative Negative 06/11/2022 10:22 EDT [facility] Blood VENOUS BLOOD / Unknown 06/08/2022 14:02 EDT 06/08/2022 22:23 EDT us Provider Outr Resulting Lab CHEMISTRY & BLOOD GA S ORDERABLES Final Result [facility] [address] [place] [address] * HEPATITIS C AB W REFLEX TO HCV RNA BY PCR (06/08/2022 14:02 EDT) Hep C Antibody Negative Negative 06/11/2022 10:52 EDT [facility] Blood VENOUS BLOOD / Unknown 06/08/2022 14:02 EDT 06/08/2022 22:23 EDT us Provider Outr Resulting Lab CHEMISTRY & BLOOD GA S ORDERABLES Final Result [facility] [address] [place] [address] documented in this encounter Visit Diagnoses Not on filedocumented in this encounter Care Teams Risk Analyst Relationship Specialty Start Date End Date Unknown, Provider, PCP - General 08/15/18 documented as of this encounter
--- OUTSIDE RECORDS SUMMARY | 2024-04-10 01:28 | XMS_ITS | Encounter Summary ---
Author Organization [facility] Address [address] [place] [address] Care Team Providers Care Test Automation Architect Name Role Phone Unknown, Provider Primary Care Provider Unava ilable Encounter Details Date Type Department Care Team (Late st Contact Info) Description 07/09/2022 Lab Requisition [facility] Pathology & Laboratory Medicine - [address] [phone] Outr Resulting Lab, Provider Social History Tobacco [...] Procedure Name Priority Date/Time Associated Diagnosis Comments THYROPEROXIDASE ANTIBODY Routine 07/09/2022 14:07 EDT documented in this encounter Results * THYROPEROXIDASE ANTIBODY (07/09/2022 14:07 EDT) Thyroperoxidase Ab <28 <=60 U/mL 2022 21:32 EDT [facility] Blood VENOUS BLOOD / Unknown 07/09/2022 14:07 EDT 07/09/2022 20:40 EDT us Provider Outr Resulting Lab CHEMISTRY & BLOOD GA S ORDERABLES Final Result [facility] [address] [place] [address] documented in this encounter Visit Diagnoses Not on filedocumented in this encounter Care Teams Test Automation Architect Relationship Specialty Start Date End Date Unknown, Provider, PCP - General 08/15/18 documented as of this encounter
--- OUTSIDE RECORDS SUMMARY | 2024-04-10 01:28 | XMS_ITS | Encounter Summary ---
Author Organization [facility] Address [address] [place] [address] Care Team Providers Care Cop Winder Name Role Phone Unknown, Provider Primary Care Provider Unava ilable Encounter Details Date Type Department Care Team (Late st Contact Info) Description 06/09/2022 Lab Requisition [facility] Pathology & Laboratory Medicine - [address] [address] Outr Resulting Lab, Provider Social History Tobacco [...] Date/Time Associated Diagnosis Comments THYROPEROXIDASE ANTIBODY Routine 06/08/2022 14:02 EDT documented in this encounter Results * THYROPEROXIDASE ANTIBODY (06/08/2022 14:02 EDT) Thyroperoxidase Ab <28 <=60 U/mL 2022 14:01 EDT [facility] Blood VENOUS BLOOD / Unknown 06/08/2022 14:02 EDT 06/09/2022 21:31 EDT us Provider Outr Resulting Lab CHEMISTRY & BLOOD GA S ORDERABLES Final Result [facility] [address] [place] [address] documented in this encounter Visit Diagnoses Not on filedocumented in this encounter Care Teams Cop Winder Relationship Specialty Start Date End Date Unknown, Provider, PCP - General 08/15/18 documented as of this encounter
--- OUTSIDE RECORDS SUMMARY | 2024-04-10 01:28 | XMS_ITS | Encounter Summary ---
Author Organization [facility] [place] [address] Care Team Providers Care Workers Compensation Claims Examiner Name Role Phone Mookie Kuo MD Primary Care Provider [phone] Reason for Visit * Reason Comments Skin Lesion Encounter Details Date Type Department Care Team (Late st Contact Info) Description 10/22/2014 2:00 PM EDT Office Visit Dermatology at [facility] [address] [place] [address] CLINIC, Yash Gonzalez MD [address] [facility] [place] [address] Intradermal nevus (Primary Dx) Discharge Disposition: Home Social History Tobacco Use Types Packs/Day Years Used Date Smoking Tobacco: Never Sex and Gender Information Value Date Recorded Sex Assigned at Not on file Gender Identity Not on file Sexual Orientation Not on file documented as of this encounter Progress Notes * Buck Partida LPN - 10/22/2014 2:08 PM EDT The patient is seen at the request of Dr. Lesa Lara for evaluation of nevus. Accompanied by: parents Chief Complaint: Lesion History of Present Illness Renny Vásquez is a 19 y.o. female. Complains of an asymptomatic, slowly thickening lesion on the right scalp that has been present herentire life. Never been treated or biopsied. ? Denies Skin Cancer History No personal history of skin cancer. No family history of skin cancer. Allergies No Known Allergies Medications IRON/CALCIUM/VITAMIN D2 (CALCIUM-VITAMIN D2-IRON ORAL) Reconciled as above Review of Systems Significant for no fevers, chills, night sweats, or fatigue and no other pertinent and acute changes in constitutional, other skin, HEENT, gastrointestinal, respiratory, cardiovascular, genitourinary, lymphatic, musculoskeletal, endocrine, neurologic, psychiatric, allergy/immunology systems upon specific queries. Past Medical History No significant past history. Past Surgical History None Family Medical History Breast cancer Social History Marital Status: single Children: none Occupation: student Tobacco: Never smoker Alcohol: none Examination Standby: BUCK PARTIDA LPN Pain 0/10. Mood is appropriate. Well developed, well-nourished in no apparent distress, alert and oriented to time, person, place and situation. Skin Type: II. Examination of the scalp significant for the following: - 10mm x 8mm warty pink friend well demarcated papule with protruding hair follicules on right vertex scalp Assessment and Plan Intradermal nevus DDx: intradermal nevus favored over nevus sebaceous. Benign. Counseled: IDN, nevus sebaceous (very low risk for malignant potential if nevus sebaceous and not routinely removed). Discussed removal techniques with shave or excision and risks. Parents and patient declined removal. Will observe for changes. If bleeds, grows or changes rapidly, or other concerning changes, follow-up with clinic or provider. Patient/Parents Counseled (Skin Cancer) Counseled: sun protection, self skin exams, provider skin exams every 12 months, and the ABCDEs of melanoma/NMSC (handout given). Answered all questions. Follow-up: Return to clinic prn for new suspicious lesions or if changes/symptoms in existing lesions develop. I am documenting this encounter acting as the scribe for and in the presence of Dr. Chang: BUCK PARTIDA LPN I performed the above scribed service and agree with the accuracy of the documentation in this encounter. Yash Chang MD [facility] Section of Dermatology [facility] documented in this encounter Plan of Treatment Not on file documented as of this encounter Visit Diagnoses Diagnosis Intradermal nevus- Primary Benign neoplasm of skin, site unspecified documented in this encounter Care Teams Workers Compensation Claims Examiner Relationship Specialty Start Date End Date Mookie Kuo MD [address] [place] [address] PCP - General 10/22/14 07/17/21 documented as of this encounter
[2024-04-10 15:28] LABS: Panorama Kit Sent via Fed Ex
[2024-04-10 15:32] LABS: Abs Immature Grans 0.03 10^3/uL (0.0-0.06); Absolute Basophil Count 0.04 10^3/uL (0.0-0.2); Absolute Eosinophil Count 0.15 10^3/uL (0.0-0.7); Absolute Lymphocyte Count 1.45 10^3/uL (1.2-3.4); Absolute Monocyte Count 0.49 10^3/uL (0.1-0.8); Absolute Neutrophil Count 6.36 10^3/uL (1.2-6.7); Basophils % 0.5 %; Eosinophils % 1.8 %; HCT 36.6 % (36.0-46.0); HGB 12.8 g/dL (11.2-15.7); Immature Grans % 0.4 %; MCH 32.3 pg (27.0-33.0); MCV 92 fL (80-95); MPV 9.4 fL (8.0-11.0); Monocytes % 5.8 %; Neutrophils % 74.5 %; Platelet Count 198 10^3/uL (130-400); RBC 3.96 10^6/uL (3.93-5.22); RDW 12.1 % (11.7-14.6); RDW-SD 41.2 fL; WBC 8.52 10^3/uL (4.4-10.8)
[2024-04-10 16:20] LABS: ALT 20 U/L (14-59); AST 21 U/L (15-37); Albumin 3.5 g/dL (3.4-5.0); Alkaline Phosphatase 64 U/L (46-116); BUN 14 mg/dL (7-18); Bilirubin, Total 0.36 mg/dL (0.2-1.0); CREATININE 0.6 mg/dL (0.55-1.02); Calcium 8.4 mg/dL (8.5-10.1); Chloride 102 mmol/L (98-107); Estimated GFR 126.87 (mL/min/1.73m2); Glucose 81 mg/dL (74-106); Potassium 3.4 mmol/L (3.5-5.1); Sodium 135 mmol/L (136-145); TSH (W/Ref FT4) 1.92 uIU/mL (0.36-3.74); Total Protein 7.1 g/dL (6.4-8.2)
[2024-04-10 22:38] LABS: Hepatitis B Surface Ag Negative (Negative)
[2024-04-10 23:14] LABS: Hepatitis C Ab w Rflx HCV PCR Negative (Negative)
[2024-04-11 00:12] LABS: HIV-1/2 Ag & Ab Screen Negative (Negative)
[2024-04-13 11:34] LABS: Rubella IgG Ab (UVM) Positive (See Note)
[2024-04-13 11:38] LABS: Varicella IgG Antibody Positive (See Note)
[2024-04-14 13:35] LABS: Syphilis IgG w/Reflex Nonreactive (Nonreactive)
== END 2024-04-10 01:20 | disposition home or self-care (01) ==
LOC: LBO 01:19
PROVIDERS: PCP Family Medicine; Visit Provider Advanced Practice Midwife
DX: Z34.91 Encounter for supervision of normal pregnancy, unspecified, first trimester (principal)
CPT/HCPCS: 36415; 80053; 86787; 86803; 86850; 86900; 86901; 87340; 87389; 84443; 85025; 86762; 86780

== ENCOUNTER 2024-04-10 15:09 | Outpatient (REF) | payer BC, SELFPAY ==
[2024-04-10 17:03] LABS: COMMENT (LAB VIEW ONLY) 126.46 mg/dL; PROTEIN 21.5 mg/dL; Prot/Crea Ur Ratio 0.17
[2024-04-13 12:07] LABS: Chlamydia Result Negative (Negative); GC Result Negative (Negative)
== END 2024-04-10 15:10 | disposition home or self-care (01) ==
LOC: LBN 15:09
PROVIDERS: PCP Family Medicine; Visit Provider Advanced Practice Midwife
DX: Z34.91 Encounter for supervision of normal pregnancy, unspecified, first trimester (principal)
CPT/HCPCS: 87491; 87591; 82565; 84156; 87086

== ENCOUNTER 2024-05-13 04:41 | Outpatient (CLI) | payer BC, SELFPAY ==
[2024-05-18 13:07] LABS: AFP 57.8 ng/mL; Calculated age at EDD 27 years; Cigarette smoking status non-Smoker; GA used in risk estimate Scan estimate; IVF Pregnancy No; Initial or repeat testing Initial testing; Insulin dependent diabetes No; Maternal Weight 119 lbs; Number of Fetuses 1; Physician Phone Number 802-748-7300; Prev Pregnancy w/NTD No; RECOMMENDED FOLLOW UP None.; Results Summary Normal risk
== END 2024-05-13 04:42 | disposition home or self-care (01) ==
LOC: LBO 04:41
PROVIDERS: Obstetrics & Gynecology; PCP Family Medicine; Visit Provider Advanced Practice Midwife
DX: Z34.91 Encounter for supervision of normal pregnancy, unspecified, first trimester (principal)
CPT/HCPCS: 82105

== ENCOUNTER 2024-05-13 13:28 | Outpatient (REF) | payer BC, SELFPAY ==
[2024-05-13 16:33] LABS: PROTEIN 12.7 mg/dL (0.0-11.9)
[2024-05-13 16:34] LABS: TOTAL PROTEIN,URINE TIMED 180.3 mg/24hr (0.0-149.1); Total Volume 1420 ml
== END 2024-05-13 13:29 | disposition home or self-care (01) ==
LOC: LBN 13:28
PROVIDERS: PCP Family Medicine; Visit Provider Advanced Practice Midwife
DX: O09.291 Supervision of pregnancy with other poor reproductive or obstetric history, first trimester (principal)
CPT/HCPCS: 81050; 84155

== ENCOUNTER 2024-08-05 01:05 | Outpatient (CLI) | payer BC, SELFPAY ==
--- NOTE | 2024-08-05 06:30 | DI.US_ITS ---
Exam(s) US OB DALILA WEIGHT EXAM: US OB DALILA WEIGHT CLINICAL HISTORY: 28 wk growth scan,h/o pre-eclampsia,O09.299. TECHNIQUE: Transabdominal obstetrical ultrasound performed. COMPARISON: US US OB 2-3 TRIMESTER from 08/10/2022 FINDINGS: Number of fetuses: 1 position: BREECH Placental location: There is a grade 1 posterior placenta. No evidence of previa. BIOMETRIC DATA: BPD: 6.73cm, 27weeks 1day HC: 25.56cm, 27weeks 5days AC: 23.33cm, 27weeks 5days FL: 5.09cm, 27weeks 2days EFW: 1,085.02g, 2lb 6.65oz, 20.8% Composite Age: 27weeks 3days MIRTA: 11/01/2024 Heart Rate: 134bpm Amniotic fluid index: 16.99cm. The largest pocket measures 4.8 cm. IMPRESSION: 1. Single live intrauterine gestation as above. 2. Estimated weight is 1085gms. This is the 21st percentile. 3. Amniotic fluid index is 17 cm. The largest pocket measures 4.8 cm. DATA REPOSITORY:
== END 2024-08-05 01:25 ==
LOC: DI 01:05
PROVIDERS: PCP Family Medicine; Visit Provider Advanced Practice Midwife
DX: O09.293 Supervision of pregnancy with other poor reproductive or obstetric history, third trimester (principal); Z3A.27 27 weeks gestation of pregnancy
CPT/HCPCS: 76816

== ENCOUNTER 2024-08-05 02:36 | Outpatient (CLI) | payer BC, SELFPAY ==
[2024-08-05 10:48] LABS: Glucose,1 Hr (Glucola) 115 mg/dL (80-140)
[2024-08-05 10:53] LABS: HCT 35.1 % (36.0-46.0); HGB 12.1 g/dL (11.2-15.7); MCH 32.7 pg (27.0-33.0); MCHC 34.5 % (32.0-36.0); MCV 95 fL (80-95); Platelet Count 183 10^3/uL (130-400); RDW 12.1 % (11.7-14.6); RDW-SD 41.8 fL; WBC 10.86 10^3/uL (4.4-10.8)
== END 2024-08-05 02:37 | disposition home or self-care (01) ==
LOC: LBO 02:36
PROVIDERS: Advanced Practice Midwife; PCP Family Medicine; Visit Provider Advanced Practice Midwife
DX: Z34.92 Encounter for supervision of normal pregnancy, unspecified, second trimester (principal)
CPT/HCPCS: 36415; 82950; 85027

== ENCOUNTER 2024-09-02 02:32 | Outpatient (CLI) | payer BC, SELFPAY ==
--- NOTE | 2024-09-02 06:30 | DI.US_ITS ---
Exam(s) US OB DALILA WEIGHT EXAM: US OB DALILA WEIGHT CLINICAL HISTORY: Stage 1 HTN,I10 in . TECHNIQUE: Transabdominal obstetrical ultrasound performed. COMPARISON: US US OB DALILA WEIGHT from 08/05/2024 FINDINGS:: Number of fetuses: 1 position: CEPHALIC Placental location: POSTERIOR No evidence of previa. BIOMETRIC DATA: BPD: 7.9cm, 31weeks 5days HC: 29.38cm, 32weeks 3days AC: 27.44cm, 31weeks 4days FL: 5.86cm, 30weeks 4days EFW: 1,746.95g, 3lb 14.62oz, 20.3% Composite Age: 31weeks 4days MIRTA: 10/31/2024 Heart Rate: 145bpm Amniotic fluid index: 12.65cm. Visually, amount of fluid is within normal limits. IMPRESSION: size and weight are within the expected range. DATA REPOSITORY:
== END 2024-09-02 02:52 ==
PROVIDERS: PCP Family Medicine; Visit Provider Advanced Practice Midwife
DX: O13.3 Gestational [pregnancy-induced] hypertension without significant proteinuria, third trimester; Z3A.32 32 weeks gestation of pregnancy
CPT/HCPCS: 76816

== ENCOUNTER 2024-09-15 13:51 | Outpatient (CLI) | payer BC, SELFPAY ==
[2024-09-15 14:18] VITALS: BP 119/84; PULSE 94
[2024-09-15 14:22] VITALS: BP 119/84; PULSE 94
[2024-09-15 14:40] VITALS: BP 119/84; PULSE 94
--- NOTE | 2024-09-15 15:45 | W.OBNST ---
Date of service: 09/15/24 Time of Service: 15:45 NST Evaluation Reason for NST Reasons for Nonstress Test: GESTATIONAL HYPERTENSION Reason for NST Other: Pre-eclampsia/HELLP with first Gestational Age Gestational Age in Weeks and Days: 33 Weeks and 6Days Test and Monitor Explained Test/Monitor Explained: Test Explained, Monitor Explained and Patient Verbalized Understanding Vital Signs Blood Pressure: 119/84 Pulse: 94 Urine Results Urine Protein: Negative Urine Ketones: Negative Urine Glucose: Negative Urine Blood: Negative NST Information Date on Monitor: 09/15/24 Time on Monitor: 14:01 Date off Monitor: 09/15/24 Time off Monitor: 14:42 Total Time on Monitor: 41 NST Interventions: PO Hydration NST Evaluation Patient States Movement: Present FHR Baseline: 135 Variability: Moderate 6-25 bpm Accelerations: 15x15 Decelerations: None NST Results: Reactive Note Ultrasound Done: N/A. NST Note Note: Reactive NST. Will continue weekly NST for antepartum surveillance for chronic hypertension. NST Reviewed and Verified by: Tea Ang
[2024-09-15 15:46] VITALS: BP 119/84; PULSE 94
== END 2024-09-15 14:45 ==
LOC: BCD 13:52 → OBS 14:13
PROVIDERS: PCP Family Medicine; Visit Provider Advanced Practice Midwife
DX: O13.3 Gestational [pregnancy-induced] hypertension without significant proteinuria, third trimester (principal); Z3A.33 33 weeks gestation of pregnancy
CPT/HCPCS: 59025

== ENCOUNTER 2024-09-16 01:56 | Outpatient (CLI) | payer BC, SELFPAY ==
--- NOTE | 2024-09-16 07:30 | DI.US_ITS ---
Exam(s) US OB DALILA WEIGHT EXAM: US OB DALILA WEIGHT CLINICAL HISTORY: hypertension,,z34.90,i10. TECHNIQUE: Transabdominal obstetrical ultrasound performed. COMPARISON: US US OB DALILA WEIGHT from 09/02/2024 FINDINGS: Number of fetuses: 1 position: CEPHALIC Placental location: There is a grade 2 posterior placenta. No evidence of previa. BIOMETRIC DATA: BPD: 8.26cm, 33weeks 2days HC: 30.96cm, 34weeks 4days AC: 29.71cm, 33weeks 5days FL: 6.17cm, 32weeks EFW: 2,153.5g, 4lb 13.25oz, 22.9% Composite Age: 33weeks 3days MIRTA: 11/01/2024 Heart Rate: 141bpm Amniotic fluid index: 19.16cm. The largest pocket is 6.2 cm. IMPRESSION: 1. Single live intrauterine gestation as above. 2. Estimated weight is 2154gms. This is the 23rd percentile. 3. Amniotic fluid index is 19.2 cm. The largest pocket is 6.2 cm. DATA REPOSITORY:
== END 2024-09-16 02:16 ==
LOC: DI 01:56
PROVIDERS: PCP Family Medicine; Visit Provider Advanced Practice Midwife
DX: Z34.93 Encounter for supervision of normal pregnancy, unspecified, third trimester (principal); Z3A.34 34 weeks gestation of pregnancy; I10 Essential (primary) hypertension
CPT/HCPCS: 76816

== ENCOUNTER 2024-09-21 07:15 | Outpatient (CLI) | payer BC, SELFPAY ==
[2024-09-21 15:50] VITALS: BP 129/94; PULSE 89; RESP 16; TEMP 36.4
[2024-09-21 15:54] VITALS: BP 129/94; PULSE 96
[2024-09-21 16:07] VITALS: BP 136/97; PULSE 98
[2024-09-21 16:10] VITALS: BP 136/97; PULSE 98
[2024-09-21 16:35] LABS: HCT 36.1 % (36.0-46.0); HGB 12.6 g/dL (11.2-15.7); MCH 33.1 pg (27.0-33.0); MCHC 34.9 % (32.0-36.0); MCV 95 fL (80-95); MPV 10.5 fL (8.0-11.0); Platelet Count 170 10^3/uL (130-400); RBC 3.81 10^6/uL (3.93-5.22); RDW 12.5 % (11.7-14.6); RDW-SD 42.9 fL; WBC 10.46 10^3/uL (4.4-10.8)
[2024-09-21 16:52] LABS: PROTEIN 16.6 mg/dL; Prot/Crea Ur Ratio 0.20
[2024-09-21 16:58] LABS: ALT 25 U/L (14-59); AST 25 U/L (15-37); Albumin 2.7 g/dL (3.4-5.0); Alkaline Phosphatase 140 U/L (46-116); Anion Gap 5.4 mmol/L (3-11); BUN 7 mg/dL (7-18); Bilirubin, Total 0.3 mg/dL (0.2-1.0); CO2 28.6 mmol/L (21.0-32.0); Calcium 9.1 mg/dL (8.5-10.1); Chloride 102 mmol/L (98-107); Estimated GFR 126.09 (mL/min/1.73m2); Glucose 109 mg/dL (74-106); Potassium 5.2 mmol/L (3.5-5.1); Sodium 136 mmol/L (136-145); Total Protein 6.8 g/dL (6.4-8.2)
--- NOTE | 2024-09-21 20:40 | W.OBNST ---
Date of service: 09/21/24 Time of Service: 16:30 NST Evaluation Reason for NST Reasons for Nonstress Test: CHRONIC HYPERTENSION Gestational Age Gestational Age in Weeks and Days: 34 Weeks and 5Days Test and Monitor Explained Test/Monitor Explained: Test Explained, Monitor Explained and Patient Verbalized Understanding Vital Signs Blood Pressure: 136/97 Pulse: 98 NST Information Date on Monitor: 09/21/24 Time on Monitor: 15:35 Date off Monitor: 09/21/24 Time off Monitor: 16:10 Total Time on Monitor: 35 NST Interventions: PO Hydration NST Evaluation Patient States Movement: Present FHR Baseline: 125 Variability: Moderate 6-25 bpm Accelerations: 10x10 Decelerations: None NST Results: Reactive Note Ultrasound Done: N/A. NST Note Note: HTN labs collected Pt scheduled for next NST in 1 week, Will review pt status with MD KELLEY Reviewed and Verified by: Nikole Shaikh
[2024-09-21 20:41] VITALS: BP 136/97; PULSE 98
== END 2024-09-21 16:25 | disposition other institution (70) ==
LOC: BCD 07:16 → OBS 15:40
PROVIDERS: PCP Family Medicine; Visit Provider Advanced Practice Midwife
DX: O13.3 Gestational [pregnancy-induced] hypertension without significant proteinuria, third trimester (principal); Z3A.34 34 weeks gestation of pregnancy
CPT/HCPCS: 36415; 80053; 85027; 59025; 82565; 84156

== ENCOUNTER 2024-09-28 07:34 | Outpatient (CLI) | payer BC, SELFPAY ==
[2024-09-28 16:13] VITALS: BP 130/88; PULSE 108
[2024-09-28 16:15] VITALS: BP 130/88; PULSE 108; RESP 16; TEMP 36.9
[2024-09-28 16:25] VITALS: BP 130/88; PULSE 108; RESP 16; TEMP 36.9
--- NOTE | 2024-09-28 17:24 | W.OBNST ---
Date of service: 09/28/24 Time of Service: 17:24 NST Evaluation Reason for NST Reasons for Nonstress Test: GESTATIONAL HYPERTENSION Gestational Age Gestational Age in Weeks and Days: 35 Weeks and 5Days Test and Monitor Explained Test/Monitor Explained: Test Explained, Monitor Explained and Patient Verbalized Understanding Vital Signs Blood Pressure: 130/88 Pulse: 108 Temperature: 98.4 F Urine Results Urine Protein: Negative Urine Ketones: Positive Urine Glucose: Negative Urine Blood: Negative NST Information Date on Monitor: 09/28/24 Time on Monitor: 16:00 Date off Monitor: 09/28/24 Time off Monitor: 16:25 Total Time on Monitor: 25 NST Interventions: PO Hydration NST Evaluation Patient States Movement: Present FHR Baseline: 135 Variability: Moderate 6-25 bpm Accelerations: 15x15 Decelerations: None NST Results: Reactive Note Ultrasound Done: N/A. NST Note Note: Renny is here for NST due to essential hypertension. neg edema or headache. Reactive NST. Return to Center for weekly NST and iol is planned at 39 weeks. NST Reviewed and Verified by: Tea Ang
[2024-09-28 17:27] VITALS: BP 130/88; PULSE 108; TEMP 36.9
== END 2024-09-28 16:30 | disposition other institution (70) ==
LOC: BCD 08:00 → OBS 16:03
PROVIDERS: PCP Family Medicine; Visit Provider Advanced Practice Midwife
DX: O13.3 Gestational [pregnancy-induced] hypertension without significant proteinuria, third trimester (principal); Z3A.35 35 weeks gestation of pregnancy
CPT/HCPCS: 59025

== ENCOUNTER 2024-10-05 07:37 | Outpatient (CLI) | payer BC, SELFPAY ==
[2024-10-05 15:41] VITALS: BP 126/87; PULSE 88; TEMP 36.7
--- NOTE | 2024-10-05 17:30 | W.OBNST ---
Date of service: 10/05/24 Time of Service: 17:00 NST Evaluation Reason for NST Reasons for Nonstress Test: CHRONIC HYPERTENSION Gestational Age Gestational Age in Weeks and Days: 36 Weeks and 5Days Test and Monitor Explained Test/Monitor Explained: Test Explained, Monitor Explained and Patient Verbalized Understanding Vital Signs Blood Pressure: 126/87 Pulse: 88 Temperature: 98.1 F Urine Results Urine Protein: Negative Urine Ketones: Negative Urine Glucose: Negative Urine Blood: Positive NST Information Date on Monitor: 10/05/24 Time on Monitor: 15:44 Date off Monitor: 10/05/24 Time off Monitor: 16:35 Total Time on Monitor: 51 NST Interventions: PO Hydration Contraction Frequency: irregular contractions. NST Evaluation Patient States Movement: Present FHR Baseline: 125 Variability: Moderate 6-25 bpm Accelerations: 15x15 Decelerations: None NST Results: Reactive Note Ultrasound Done: N/A. NST Note Note: weekly NST, IOL planned 10/21 NST Reviewed and Verified by: Nikole Shaikh
[2024-10-06 08:30] VITALS: BP 126/87; PULSE 88; TEMP 36.7
== END 2024-10-05 16:48 ==
LOC: BCD 07:40 → OBS 15:39
PROVIDERS: PCP Family Medicine; Visit Provider Advanced Practice Midwife
DX: O13.3 Gestational [pregnancy-induced] hypertension without significant proteinuria, third trimester (principal); Z3A.36 36 weeks gestation of pregnancy
CPT/HCPCS: 59025

== ENCOUNTER 2024-10-12 01:57 | Outpatient (CLI) | payer BC, SELFPAY ==
--- NOTE | 2024-10-12 07:15 | DI.US_ITS ---
Exam(s) US OB DALILA WEIGHT EXAM: US OB DALILA WEIGHT CLINICAL HISTORY: hypertension in ,i10. TECHNIQUE: Transabdominal obstetrical ultrasound performed. COMPARISON: US US OB DALILA WEIGHT from 08/05/2024 US US OB DALILA WEIGHT from 09/02/2024 US US OB DALILA WEIGHT from 09/16/2024 FINDINGS:: Number of fetuses: 1 position: CEPHALIC Placental location: POSTERIOR No evidence of previa. BIOMETRIC DATA: BPD: 9.21cm, 37weeks 3days HC: 32.26cm, 36weeks 3days AC: 32.39cm, 36weeks 2days FL: 7.14cm, 36weeks 4days EFW: 2,958.35g, 6lb 8.36oz, 29.3% Composite Age: 36weeks 5days MIRTA: 11/04/2024 Heart Rate: 137bpm Amniotic fluid index: 16.21cm. Visually, amount of fluid is within normal limits. IMPRESSION: size and weight are within the expected range. DATA REPOSITORY:
== END 2024-10-12 02:17 ==
LOC: DI 01:57
PROVIDERS: PCP Family Medicine; Visit Provider Advanced Practice Midwife
DX: I10 Essential (primary) hypertension (principal); Z34.93 Encounter for supervision of normal pregnancy, unspecified, third trimester; Z3A.37 37 weeks gestation of pregnancy
CPT/HCPCS: 76816

== ENCOUNTER 2024-10-12 15:34 | Outpatient (CLI) | payer BC, SELFPAY ==
[2024-10-12 15:56] VITALS: BP 121/75; PULSE 97
[2024-10-12 16:11] VITALS: BP 120/61; PULSE 78
[2024-10-12 16:30] VITALS: BP 120/61; PULSE 78
--- NOTE | 2024-10-12 16:49 | W.OBNST ---
Date of service: 10/12/24 Time of Service: 16:50 NST Evaluation Reason for NST Reasons for Nonstress Test: CHRONIC HYPERTENSION Gestational Age Gestational Age in Weeks and Days: 37 Weeks and 5Days Test and Monitor Explained Test/Monitor Explained: Test Explained, Monitor Explained and Patient Verbalized Understanding Vital Signs Blood Pressure: 120/61 Pulse: 78 Urine Results Urine Protein: Negative Urine Ketones: Negative Urine Glucose: Negative Urine Blood: Negative NST Information Date on Monitor: 10/12/24 Time on Monitor: 15:36 Date off Monitor: 10/12/24 Time off Monitor: 16:27 Total Time on Monitor: 51 NST Interventions: PO Hydration Contraction Frequency: x1 NST Evaluation Patient States Movement: Present FHR Baseline: 125 Variability: Moderate 6-25 bpm Accelerations: 15x15 Decelerations: None NST Results: Reactive Note Ultrasound Done: N/A. NST Note Note: Weekly NST for hypertension. Reactive NST. IOL scheduled in 1 week. NST Reviewed and Verified by: Tea Ang
[2024-10-12 16:50] VITALS: BP 120/61; PULSE 78
== END 2024-10-12 16:30 ==
LOC: BCD 15:37 → OBS 15:50
PROVIDERS: PCP Family Medicine; Visit Provider Advanced Practice Midwife
DX: O13.3 Gestational [pregnancy-induced] hypertension without significant proteinuria, third trimester (principal); Z3A.37 37 weeks gestation of pregnancy
CPT/HCPCS: 59025; 87081

== ENCOUNTER 2024-10-19 16:06 | Outpatient (CLI) | payer BC, SELFPAY ==
[2024-10-19 16:14] VITALS: BP 129/80; TEMP 36.4
--- NOTE | 2024-10-19 16:55 | W.OBNST ---
Date of service: 10/19/24 Time of Service: 16:55 NST Evaluation Reason for NST Reasons for Nonstress Test: CHRONIC HYPERTENSION Gestational Age Gestational Age in Weeks and Days: 38 Weeks and 5Days Test and Monitor Explained Test/Monitor Explained: Test Explained, Monitor Explained and Patient Verbalized Understanding Vital Signs Blood Pressure: 129/80 Temperature: 97.5 F Urine Results Urine Protein: Negative Urine Ketones: Negative Urine Glucose: Negative Urine Blood: Negative NST Information Date on Monitor: 10/19/24 Time on Monitor: 15:48 Date off Monitor: 10/19/24 Time off Monitor: 16:20 Total Time on Monitor: 32 NST Interventions: PO Hydration and Reposition Patient NST Evaluation Patient States Movement: Present FHR Baseline: 130 Variability: Moderate 6-25 bpm Accelerations: 15x15 Decelerations: None NST Results: Reactive Note Ultrasound Done: N/A. NST Note Note: Renny is here for weekly NST. IOL scheduled for 10/21 due to hypertension. NST Reviewed and Verified by: Tea Ang
[2024-10-19 16:56] VITALS: BP 129/80; TEMP 36.4
== END 2024-10-19 16:32 ==
LOC: BCD 16:06 → OBS 16:11
PROVIDERS: PCP Family Medicine; Visit Provider Advanced Practice Midwife
DX: O13.3 Gestational [pregnancy-induced] hypertension without significant proteinuria, third trimester (principal); Z3A.38 38 weeks gestation of pregnancy
CPT/HCPCS: 59025

== ENCOUNTER 2024-10-21 08:46 | Inpatient (IN) | payer BC, SELFPAY ==
[2024-10-21] VITALS (23 sets, daily range): BP systolic 115–140; BP diastolic 66–86; PULSE 69–115; RESP 16–18; TEMP 36.4–37.3; O2SAT 97–100
[2024-10-21] MEDS: miSOPROStol 25 MCG TAB 50 MCG PO ×2 (08:56→14:22)
[2024-10-21 09:27] LABS: HCT 34.5 % (36.0-46.0); HGB 11.7 g/dL (11.2-15.7); MCH 32.1 pg (27.0-33.0); MCHC 33.9 % (32.0-36.0); MCV 95 fL (80-95); MPV 10.7 fL (8.0-11.0); Platelet Count 158 10^3/uL (130-400); RBC 3.65 10^6/uL (3.93-5.22); RDW 12.6 % (11.7-14.6); RDW-SD 43.3 fL; WBC 8.27 10^3/uL (4.4-10.8)
--- NOTE | 2024-10-21 10:57 | W.PM.OBHPL1 ---
Date of service: 10/21/24 Time of Service: 10:58 Assessment and Plan Assessment and plan (1) Encounter for induction of labor: Status: Acute Assessment and plan: Admit to Center. Reviewed cervical ripening methods. Yessica prefers oral misoprostol at this time. Consider vaginal if no response. Anticipate . (2) Stage 1 hypertension: Status: Acute Assessment and plan: Continue to monitor BP. preeclampsia labs if indicated. OB-HPI Labor/Delivery History of Present Illness Reason for Visit: Induction of Labor Chief Complaint: Scheduled Induction of Labor Indication for Induction: Chronic Hypertension. MIRTA Calculator Estimated Delivery Date Method Current WG Current Estimate 10/28/24 Ultrasound #1 39w 0d Other Estimates 10/19/24 LMP (Certain) 40w 2d Comments: Renny presents for cervical ripening at 39 weeks due to chronic hypertension. History of Present Expected Delivery Route/Plan - CNM FOB/ - Ramiro Holliday (2nd child together) BG Unmedicated labor, likes nitrous GBS negative Specific Issues/Plan 1. Chronic HTN no meds, w/Hx pre-eclampsia +HELLP with prior ; low dose ASA @ 12 wks, initial CMP=nml, urine prot/creat=0.17. 24hr urine 180 1a. consult w/[facility] MD's. 32wk growth sono, 34 wk testing, IOL 37-38 wks though [facility] states IOL @ 39 wks 1b. MFM consult at [facility] 06/03/2024-recommends antihypertensives if blood pressures consistently greater than 130-140/80-90. May start with labetalol 50 mg daily and titrate as needed. Continue baby aspirin. Check urine protein creatinine ratio. Serial growth ultrasounds beginning at 28 weeks. surveillance beginning at 32 weeks (if she requires medication), delivery at 39 weeks unless indication earlier 1c. [facility] recommends 32 weeks testing with Growth US monthly at 28 weeks. 7/2 21%ile and DALILA 16 1d. US at 34 weeks=EFW in 23rd percentile, DALILA 19, cephalic. Urine pr/cr ratio @ 34 wks=0.20 1e. US at 37 weeks - EFW 29%ile and DALILA 16.1 2. PAP due Nov 2024, will do 3. CF/SMA carrier negative, cfDNA low rsk female; AFP=nml risk PFSH All Active Problems (Updated 10/21/24 @ 10:59 by Tea Ang CNM) Encounter for induction of labor (Acute) Stage 1 hypertension (Acute) History of pre-eclampsia in prior , currently (Acute) (Acute) Medical History (Updated 10/21/24 @ 10:59 by Tea Ang CNM) Elevated TSH Enlarged thyroid Elevated liver enzymes Family history of thyroid disease Family history of congenital heart defect Renny's father - bicuspid aortic valve. Pt had echo in childhood and does not have this. Closed fracture of humerus L Family History (Updated 07/09/22 @ 13:45 by Tea Ang CNM) Father Essential hypertension Grandmother Personal history of malignant neoplasm Heart disease Maternal Grandmother Breast cancer age 60 Paternal Grandfather Heart disease Maternal Grandfather Parathyroid abnormality parathyroid nodules removed Mother Parathyroid abnormality Social History Smoking/Tobacco Use Status: Never Smoking risk assessment performed?: Yes Alcohol Intake: never Drug use: Never Substance use type: does not use Housing: house Do you feel safe at home: Yes Do you feel safe in your relationship?: Yes Female Reproductive History Menstrual Age of Menarche: 17 control method: none History History 2 Para 1 Hx # Term Pregnancies 1 Multiple births 0 Hx # Pregnancies 0 Ectopic pregnancies 0 AB induced 0 Hx Number of Living Children 1 AB spontaneous 0 Past Pregnancies Del. Date GA/Weeks # Preg Succ Route Wgt Sex Labor Lgth Anesthesia Location Prov Complic 01/02/23 40 No Yes vaginal 6 lb 7.5 oz Female 8hrs 24min [facility] Delivery Date: 01/02/23 Last Updated by: Nikole Shaikh Spont labor after membrane sweep, no meds, pit aug, nml Ashwin, labetalol Meds Allergies and Home Medications Allergies Allergy/AdvReac Type Severity Reaction Status Date / Time No Known Allergies Allergy Verified 09/15/24 14:15 Home Medications ?Medication ?Instructions ?Recorded ?Confirmed ?Type prenat.vits,teena,[id number] 1 tab PO DAILY 11/29/21 10/21/24 History aspirin 81 mg tablet,delayed 162 mg PO DAILY 06/10/24 10/21/24 History release Exam Physical Exam Vital signs: Temp Pulse Resp BP Pulse Ox 98.5 F 86 16 133/80 97 10/21/24 08:27 10/21/24 10:56 10/21/24 08:27 10/21/24 10:56 10/21/24 08:27 Vital Signs Reviewed: Yes Constitutional Constitutional: no acute distress Detailed Labor and Delivery Exam Dilation: 1 Effacement (%): 75 station: -1 Cervix position: posterior Consistency: soft Johnson Score: Cervical Points Exam 0 1 2 3 Dilation Closed 1-2cm 3-4 cm 5-6cm Effacement 0-30% 40-50% 60-70% 80% Consistency Firm Medium Soft Station -3 -2 -1,0 +1,+2 Position Posterior Mid Anterior JOHNSON Score(Cervical Ripeness Score): 7 Amniotic Membrane Status: Intact Monitor Mode: External Contraction Frequency(min): every 3-5 Contraction Duration(sec): 50-60 Contraction Intensity: Mild/Moderate Comments: painless contractions Fetus A Heart Rate Baseline: 135 Monitor Accelerations: 15 X 15 Monitor Decelerations: None Variability: Moderate (6-25 BPM) Presentation: Cephalic Categories: Category I Est. Weight: 7 lb HEENT Exam HEENT Exam: Normal Respiratory Exam Respiratory Exam: Normal Cardiovascular Exam Cardiovascular Exam: Normal Abdominal Exam Abdominal Exam: Normal Exam Exam: Normal Extremities Exam Extremities Exam: Normal Skin Exam Skin Exam: Normal Psychiatric Exam Psychiatric Exam: Normal Results Results Group Beta Strep: Negative Blood Type: O+ Rubella Status: Immune Varicella Immunity: Immune Abnormal Lab Findings: Abnormal Labs 10/21/24 09:10 RBC 3.65 L Hct 34.5 L Risk Assessment Risk for Shoulder Dystocia Historical/Initial OB: NEGATIVE FOR: Pelvic Abnormality, Pre- BMI>30, Previous Shoulder Dystocia or Previous Macrosomia 36 Weeks: NEGATIVE FOR: Current Gestational DM, EFW>4500gms or Maternal Weight Gain>40lbs 40 Weeks: NEGATIVE FOR: EFW> 4500 gms, Maternal Weight Gain >40lb or Post Dates Increased Risk?: No Delivery Plan @ 36wks: , IOL at 39 wks Risk for Pre-Eclampsia Daily Dose ASA Indicated: Yes Date Initiated/Initials: start low dose ASA at 12 wks. JK Yes, if one or more: POSTIVE FOR: Hx Pre-E/Gest HTN; NEGATIVE FOR: Chronic HTN, Multiple Gestation, Pre-gestational DM, Renal Disease, Systemic Lupus or APA Syndrome Yes, if 2 or more: NEGATIVE FOR: Nulliparity, Age>= 35 yrs, >10yr btwn pregnancies, BMI>30, ethinicty, Mother/Sister w/ Pre-E or Previous IUGR Risk for Post- Hemorrhage Initial: NEGATIVE FOR: Multiple Gestation, Previous PPH, Known Clotting Deficiency, Grand Multiparity or Anticoagulation 36 Weeks: NEGATIVE FOR: Anemia, hgb<10, Low platelets(thrombocytopenia), Gestational HTN or Pre-E, Polyhydraminios or EFW>4500gms 40 Weeks: NEGATIVE FOR: Anemia, hgb<10, Low platelets (thrombocytopenia), Gestation HTN or Pre-E, Polyhydraminios or EFW>4500gms At Risk?: No Counseled re: Active Management: Yes Risks Reviewed Risks Reviewed Upon Admission: Yes
[2024-10-21] MEDS: Acetaminophen 325 MG TAB (18:25)
--- NOTE | 2024-10-21 18:27 | W.OBDELIVERY ---
Date of service: 10/21/24 Time of Service: 18:28 OB Labor/ Delivery Information Providers Doctor: Yen Hardy Nurse: Stephie Vang Nurse: Lisa Delgado Labor/Delivery Information Number of Babies in Womb: 1 Steroids Given: None Reason Steroids Not Administered: N/A Group Beta Strep: Negative Antibiotics Administered: No Rubella Status: Immune Blood Type: O+ Varicella Immunity: Immune Note: 29-year-old G2 now P2002 underwent a 39-week (as dated by 7-week ultrasound) spontaneous vaginal delivery to a baby girl (name pending) over an intact perineum without epidural anesthesia. Patient originally presented to labor and delivery this morning (Saturday, October 21, 2024) for scheduled induction of labor for history of chronic hypertension (well-controlled without medication). She received 2 doses of oral Cytotec; she then underwent spontaneous rupture of membranes to clear fluid sometime around 6 PM. I received a phone call shortly after this stating that the patient had a strong desire to push. Midwives had been paged but were not yet present; therefore, I was asked to evaluate the situation. Upon arrival to the room the patient was found to be on all fours on the floor breathing nitrous and notably uncomfortable. As I began to introduce myself and wash my hands, the patient was noted to be bearing down. I donned sterile gloves, and leaned down to check her when she delivered the head in a squatting position. The traditionally-anterior shoulder (AKA: The shoulder engaging the pubic symphysis) was having what seemed to be a difficult time releasing; albeit, I was paying special attention to avoid applying any undue pressure. I asked the mother to position herself forward a little bit more, and with this on her next push, the traditionally?anterior shoulder delivered. The rest of the body then delivered without issue. The baby was noted to be immediately vigorous the baby was wrapped into a warm towel and the mother was sat down onto the ground, and she was handed her baby for immediate skin to skin. I called for the administration of IM Pitocin, and the mother was then carefully repositioned onto the bed. At this point, the cord was double clamped and cut by the father the baby under the guidance of the physician. A cord segment was collected and set aside; this segment was noted to have a loose true knot. Placenta then delivered within 15 minutes of delivery of the baby without issue. Good hemostasis was noted, and the uterine fundus was firm. An evaluation of the perineum revealed a superficial, but well-approximated and hemostatic abrasion of the perineum; given its reassuring nature and the lack of pain meds on board for mother, this was not repaired. Given the baby's reassuring appearance, Cord gases were not collected. Cord blood for the baby was collected from the segment of umbilical cord. Mother and baby tolerated the procedure very well. Patient was handed back over to the client account assistant upon her arrival. Stages of Labor Onset of Labor Date: 10/21/24 Complete Dilatation Date: 10/21/24 Infant Delivery Date-Baby A: 10/21/24 Delivery Time-Baby A: 18:06 Placenta Delivery Date-Baby A: 10/21/24 Placenta Delivery Time-Baby A: 18:12 Labor-Stage 3 Duration: 6 minutes Placenta Status: Delivered Baby A Gender: Female Gestational Age in Weeks/Days: 39 Weeks and 0 Days Length-Baby A: 17.5 in Score-1 Minute Interval(Baby A) Heart Rate-1 minute: 100 BPM or Greater Respiratory Effort- 1 minute: Spontaneous/Strong Cry Muscle Tone-1 minute: Active Movement Reflex Response-1 minute: Prompt Response Color-1 minute: Bluish Hands or Feet Total Score-1 minute: 9 Score-5 Minute Interval(Baby A) Heart Rate- 5 minute: 100 BPM or Greater Respiratory Effort-5 minute: Spontaneous/Strong Cry Muscle Tone-5 minute: Active Movement Reflex Response-5 minute: Prompt Response Color-5 minute: Bluish Hands or Feet Total Score- 5 minute: 9
[2024-10-21 18:45] LABS: HCT 34.3 % (36.0-46.0); HGB 12.0 g/dL (11.2-15.7); MCH 33.1 pg (27.0-33.0); MCHC 35.0 % (32.0-36.0); MCV 95 fL (80-95); MPV 10.8 fL (8.0-11.0); Platelet Count 157 10^3/uL (130-400); RBC 3.63 10^6/uL (3.93-5.22); RDW 12.7 % (11.7-14.6); RDW-SD 43.6 fL; WBC 10.72 10^3/uL (4.4-10.8)
[2024-10-21] MEDS: Oxytocin 10 UNITS/ML VIAL IM (18:48)
[2024-10-21] MEDS: miSOPROStol 50 MCG TAB 600 MCG PO (19:27)
[2024-10-21] MEDS: Dibucaine 1% 28 GM TUBE TP (22:03)
[2024-10-21] MEDS: Ibuprofen 600 MG TAB PO (22:03)
[2024-10-21] MEDS: Hamamelis Leaf/Glycerin 100 EACH BOX PR (22:03)
--- NOTE | 2024-10-22 07:51 | W.PM.OBPNV1 ---
Date of service: 10/22/24 Time of Service: 07:51 Assessment and Plan Assessment and plan (1) Term delivered: Status: Acute Assessment and plan: A: PPD#1, nml recovery, well, normotensive Satisfied with experience P: Plan discharge later this evening @ pt request (@ 24 hrs) F/up at 2 & 6 wks Written instructions reviewed and given to pt Contraception planned is condoms until vasectomy is done Subjective Subjective Patient comments: No complaints, Pain well controlled, Tolerating diet and Flatus present Patient's Mood: happy [place] baby status: Doing well, Nursing well, Rooming in and Strong Bonding Observed [place] feeding status: Exclusively breast feeding Exam Physical Exam Vital signs: Temp Pulse Resp BP Pulse Ox 99.1 F 94 H 16 115/71 98 10/21/24 21:01 10/21/24 21:01 10/21/24 21:01 10/21/24 21:01 10/21/24 21:01 Vital Signs Reviewed: Yes Constitutional Constitutional: no acute distress, average body habitus and cooperative HEENT Exam HEENT Exam: Normal Neck Exam Neck Exam: Normal Breast Exam Bilateral: Breast Exam: Normal and Soft Nipple Exam: Normal and Uninjured Respiratory Exam Respiratory Exam: Normal Cardiovascular Exam Cardiovascular Exam: Normal Abdominal Exam Abdomen: Other (soft, nontender) Fundal Exam Fundus: Below Umbilicus and Firm Rectal Exam Rectal Exam: Normal Exam Perineum: Intact Extremities Exam Extremity Exam: Normal, Full ROM and Warm to Touch Back/Spine/Pelvis Exam Back Exam: Normal Skin Exam Skin Exam: Normal Neurological Exam Neurological Exam: Normal Psychiatric Exam Psychiatric Exam: Normal Results Hemoglobin/Hematocrit: Hgb 12.0 g/dL (11.2-15.7) 10/21/24 18:35 Hct 34.3 % (36.0-46.0) L 10/21/24 18:35
[2024-10-22 09:17] VITALS: BP 126/90; PULSE 80; RESP 16; TEMP 37.2; O2SAT 99
--- NOTE | 2024-10-22 21:40 | DSE_ITS ---
Date of service: 10/22/24 Time of Service: 21:40 DS: Diagnosis Discharge Diagnosis (1) Term delivered: Status: Acute Discharge Plan Disposition Patient Disposition: Home Condition: Good Discharge Details Reason For Visit: Induction of Labor Admit Date/Time: 10/21/24 08:46 Admit Provider: Tea Ang Attending Provider: Tea Ang Primary Care Provider: Stephie Sullivan Hospital Course Hospital Course: Admitted for IOL due to hx pre-eclampsia, on day of admission, nml recovery. Home Meds and New Rx's Prescriptions: No Action aspirin 81 mg tablet,delayed release (DR/EC) 162 mg PO DAILY prenat.vits,teena,moq-eoqo-ymupx Tablet 1 tab PO DAILY Discharge Instructions Additional Instructions: Please keep your 2 and 6 wk appointments with the midwives, call for any and all concerns Stand Alone Forms: BC Instructions, BC Post Vaginal Deliver Activity:: Activity as Tolerated Equipment/Supplies:: No Equipment Needed Diet:: Normal Diet Discharge Orders Discharge Orders: Discharge Order (Routine); Ordered 10/22/24 Ordered By: Nikole Shaikh Discharge Data Discharge Date/Time-TO BE ENTERED AT DEPARTURE: 10/22/24 19:05 OB:DS Summary Summary Episiotomy Description: None Laceration Description: Perineal Contraception Discussed Contraception Discussed: Yes Contraceptive Plan: Foam/Condoms and Vasectomy, Gender-Baby A: Female weight: 7 lb 2.993 oz Status at Discharge Functional status at discharge: independent ambulation Overall status at discharge: patient is progressing back to baseline Mental Status: mental status grossly normal Speech and Movement: speech and movement normal Mood: congruent mood Affect: normal affect Exam Physical Exam Vital signs: Temp Pulse Resp BP Pulse Ox 99.0 F 80 16 126/90 99 10/22/24 09:17 10/22/24 09:17 10/22/24 09:17 10/22/24 09:17 10/22/24 09:17 Vital Signs Reviewed: Yes Constitutional Constitutional: no acute distress, average body habitus and cooperative HEENT Exam HEENT Exam: Normal Neck Exam Neck Exam: Normal Breast Exam Bilateral: Breast Exam: Normal and Soft Respiratory Exam Respiratory Exam: Normal Cardiovascular Exam Cardiovascular Exam: Normal Abdominal Exam Abdomen: Other (soft, nontender) Fundal Exam Fundus: Below Umbilicus and Firm Rectal Exam Rectal Exam: Normal Exam Perineum: Intact Extremities Exam Extremity Exam: Normal, Full ROM and Warm to Touch Back/Spine/Pelvis Exam Back Exam: Normal Skin Exam Skin Exam: Normal Neurological Exam Neurological Exam: Normal Psychiatric Exam Psychiatric Exam: Normal PFSH All Active Problems (Updated 10/22/24 @ 07:53 by Nikole Shaikh) Term delivered (Acute) Stage 1 hypertension (Acute) Medical History (Updated 10/22/24 @ 07:53 by Nikole Shaikh) History of pre-eclampsia in prior , currently Encounter for induction of labor Elevated TSH Enlarged thyroid Elevated liver enzymes Family history of thyroid disease Family history of congenital heart defect Renny's father - bicuspid aortic valve. Pt had echo in childhood and does not have this. Closed fracture of humerus L Family History (Updated 07/09/22 @ 13:45 by Tea Ang CNM) Father Essential hypertension Grandmother Personal history of malignant neoplasm Heart disease Maternal Grandmother Breast cancer age 60 Paternal Grandfather Heart disease Maternal Grandfather Parathyroid abnormality parathyroid nodules removed Mother Parathyroid abnormality Social History Smoking/Tobacco Use Status: Never Smoking risk assessment performed?: Yes Alcohol Intake: never Drug use: Never Substance use type: does not use Housing: house Do you feel safe at home: Yes Do you feel safe in your relationship?: Yes Female Reproductive History Menstrual Age of Menarche: 17 control method: none History History 2 Para 1 Hx # Term Pregnancies 1 Multiple births 0 Hx # Pregnancies 0 Ectopic pregnancies 0 AB induced 0 Hx Number of Living Children 1 AB spontaneous 0 Past Pregnancies Del. Date GA/Weeks # Preg Succ Route Wgt Sex Labor Lgth Anesth esia Location Prov [facility] 01/02/23 40 No Yes vaginal 6 lb 7.5 oz Female 8hrs 24min [facility] Delivery Date: 01/02/23 Last Updated by: Nikole Shaikh Spont labor after membrane sweep, no meds, pit aug, nml Ashwin, labetalol DS: Data Vitals/I&O Vitals and I&O: Vital Signs Temperature 99.0 F 10/22/24 09:17 Temperature Source Forehead 10/22/24 09:17 Pulse 80 10/22/24 09:17 Pulse Rhythm Regular 10/22/24 08:04 Respiratory Rate 16 10/22/24 09:17 Blood Pressure 126/90 10/22/24 09:17 Blood Pressure Mean 102 10/22/24 09:17 Pulse Oximetry 99 10/22/24 09:17 Oxygen Delivery Method Room Air 10/21/24 08:27 Oxygen Flow Rate 0 10/21/24 08:27 Pain Level 0 10/21/24 08:27 Intake & Output 10/22/24 10/22/24 10/23/24 11:59 23:59 11:59 Output Total 1250 / 1250 Balance -1250 / -1250 Output: Urine 1250 / 1250 Other: Urine Color Light Yoselin Urine Appearance Clear Urine Odor None
== END 2024-10-22 19:05 | disposition home or self-care (01) | DRG 807 ==
PROVIDERS: Obstetrics & Gynecology; Admitting Provider Advanced Practice Midwife; PCP Family Medicine; Visit Provider Advanced Practice Midwife
DX: O10.02 Pre-existing essential hypertension complicating childbirth (principal); Z37.0 Single live birth; Z3A.39 39 weeks gestation of pregnancy; Z82.79 Family history of other congenital malformations, deformations and chromosomal abnormalities; E01.0 Iodine-deficiency related diffuse (endemic) goiter; O99.284 Endocrine, nutritional and metabolic diseases complicating childbirth; O69.2XX0 Labor and delivery complicated by other cord entanglement, with compression, not applicable or unspecified; O70.0 First degree perineal laceration during delivery
CPT/HCPCS: 36415; 85027; 86850; 86900; 86901; 59200; J2590; J3490